=== PATIENT | male | born 1960 | race Caucasian/White ===

== ENCOUNTER → 2019-11-25 08:31 | Outpatient (CLI) | payer OTHER, SELFPAY ==
--- NOTE | ~2019-11-25 | CT_ITS ---
EXAMINATION: CT chest wo con EXAM DATE: 11/25/2019 08:58 INDICATION: Cough and tobacco use. TECHNIQUE: Spiral CT of the chest without contrast. Axial, coronal and sagittal images were reviewe d. Coronal maximum intensity pixel images of chest reviewed. The dose-length product (DLP) for this examination was 656.93 mGy-cm. The exposure was tailored according to patient size (auto mA exposur e control), and iterative reconstruction (ASIR) was used as additional dose reduction technique. The re is no prior study for comparison. FINDINGS: The lungs are clear. There is a dual lead pacemaker/AICD seen with leads projecting over the expected locations of the right atrial appendage and right ventricle. There is mild emphysema. Th ere are no pleural or pericardial effusions. Tracheobronchial tree is patent. There is no mediast inal, hilar or axillary lymphadenopathy. There is no pneumothorax. Heart normal in size. There is mild coronary arterial calcification, arterial sclerosis. Upper abdomen is unremarkable. There is thoracic spondylosis without osteoblastic or osteolytic lesions identified. IMPRESSION: 1. Mild emphysema. Reviewed, dictated and finalized at location B. IMPRESSION: 1. Mild emphysema.
== END ==
PROVIDERS: PCP Family Medicine; Visit Provider Family Medicine
DX: R05 Cough (principal); Z72.0 Tobacco use; J43.9 Emphysema, unspecified
CPT/HCPCS: 71250

== ENCOUNTER 2020-02-22 06:51 | Outpatient (NON) | payer OTHER, SELFPAY ==
[2020-02-25 12:47] LABS: SARS-CoV-2 RNA PCR Negative
== END 2020-02-22 06:52 ==
LOC: ANHCOVIDDT 07:22
PROVIDERS: Physician Assistant; PCP Family Medicine; Visit Provider Family Medicine
DX: Z20.828 Contact with and (suspected) exposure to other viral communicable diseases (principal); R68.89 Other general symptoms and signs
CPT/HCPCS: 87635; C9803; U0003

== ENCOUNTER → 2020-05-19 09:10 | Outpatient (CLI) | payer OTHER, SELFPAY ==
--- NOTE | ~2020-05-19 | CT_ITS ---
EXAMINATION: CT diagnostic chest wo con DATE: 05/19/2020 09:28 INDICATION: Cough, COPD TECHNIQUE: Computed tomography (CT) of the chest was performed without intravenous contrast. The dose -length product (DLP) was 340.31 mGy-cm. Automated exposure control and iterative reconstruction tech SimulScribe[employer] were employed. COMPARISON: 11/25/2019 FINDINGS: There is mild emphysema. The lungs are free of focal airspace opacities. There is no pleura l effusion or pneumothorax. No pathologically enlarged thoracic lymph nodes are identified. The heart size is normal. . Calcified coronary artery atherosclerosis is noted. A dual-lead cardiac pacemaker of the left chest wall ends with leads in expected locations. There is mild thoracic spondylosis. IMPRESSION: 1. Mild emphysema Reviewed, dictated and finalized at location A. S RECEPTIONIST IMPRESSION: 1. Mild emphysema
== END ==
PROVIDERS: PCP Family Medicine; Visit Provider Family Medicine
DX: Z12.2 Encounter for screening for malignant neoplasm of respiratory organs (principal); Z87.891 Personal history of nicotine dependence
CPT/HCPCS: 71250

== ENCOUNTER → 2021-04-21 10:45 | Outpatient (CLI) | payer OTHER, SELFPAY ==
[2021-04-21 21:18] LABS: SARS-CoV-2 RNA PCR Negative
== END ==
PROVIDERS: Nurse Practitioner Gerontology; PCP Family Medicine; Visit Provider Family Medicine
DX: Z20.822 Contact with and (suspected) exposure to COVID-19 (principal)
CPT/HCPCS: C9803; U0003; U0005

== ENCOUNTER → 2021-07-06 08:49 | Outpatient (CLI) | payer OTHER, SELFPAY ==
--- NOTE | ~2021-07-06 | XR_ITS ---
EXAMINATION: XR shoulder LT min 2V DATE: 07/06/2021 09:22 INDICATION: Left shoulder pain. TECHNIQUE: 4 views of left shoulder were obtained. COMPARISON: None. FINDINGS: Bone alignment is normal. No fracture. There is mild osteoarthritis of glenohumeral joint a nd moderate osteoarthritis of acromioclavicular joint. There is calcific tendinitis of the rotator cu ff. There is a loose body in glenohumeral joint. A left chest pacer is noted. IMPRESSION: 1. Polyarticular osteoarthritis. 2. Loose body in glenohumeral joint. 3. Calcific tendinitis of left rotator cuff. Reviewed, dictated and finalized at location A.
--- NOTE | ~2021-07-06 | XR_ITS ---
EXAMINATION: XR knee RT min 4V DATE: 07/06/2021 09:22 INDICATION: Right knee pain. TECHNIQUE: 4 views of right knee including standing views were obtained. COMPARISON: None. FINDINGS: Bone alignment is normal. No fracture. There is mild tricompartmental osteoarthritis charac terized by marginal osteophytes. No joint space narrowing. No knee joint effusion. IMPRESSION: 1. Mild right knee osteoarthritis. Reviewed, dictated and finalized at location A.
== END ==
PROVIDERS: PCP Family Medicine; Visit Provider Family Medicine
DX: M17.12 Unilateral primary osteoarthritis, left knee (principal); M19.012 Primary osteoarthritis, left shoulder; M24.012 Loose body in left shoulder; M77.8 Other enthesopathies, not elsewhere classified
CPT/HCPCS: 73030; 73564

== ENCOUNTER 2021-07-29 15:01 | Outpatient (RCR) | payer OTHER, SELFPAY ==
--- NOTE | 2021-07-29 15:55 | PTOPEVAL ---
PHYSICAL THERAPY EVALUATION AND PLAN OF CARE 07-29-21 The PT evaluation was performed for the diagnosis of L frozen shoulder. Sid has improved since the injection and today has full active ROM without pain. He was issued a home exercise program for strengthening and is to call if there are any changes and he wants PT treatment. His plan of care is set for 0-2x/wk for 4 weeks. Thank you for referring Sid Iraheta to [facility] Please review, sign, date and return this plan of care ELENA. I agree with and certify that the following plan of care is medically necessary. Referring Physician Date Attending Provider: Yonatan Frazier APN Past Medical History Source of Past Medical History Recalled from Previous Visit, Confirmed with Patient/Family Neurological History Hx Neurological Disorders No Significant History Cardiovascular History Hx Hypertension Yes: meds Hx Other Cardiac Disorders Yes: implanted defrib/pacer Respiratory History Hx Chronic Obstructive Pulmonary Disease Yes (COPD) Hx Emphysema Yes Gastrointestinal History Hx Gastrointestinal Disorders No Significant History Musculoskeletal History Hx Arthritis Yes: R shoulder,both knees, wrists and hands Endocrine History Hx Diabetes Yes: meds Evaluation Information Diagnosis L frozen shoulder Onset July 05, 2021 Subjective Information onset of pain: working Query Text:As Reported By Patient/ overhead alot, standing on Family ladder at work during day; that night had increased pain and next day could not move arm; went to general dr, saw specialist--got an injection into shoulder on 07-15-21; started feeling better, started moving my arm and using it; now not hardly hurting at all and moving better; Was off work about 9 days, returned to work 07-19-21; 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
--- NOTE | 2021-08-25 08:46 | PCPTNOTE ---
PHYSICAL THERAPY DISCHARGE 08-25-21 Attending Provider: Yonatan Frazier APN Patient:Sid Iraheta Date of :1960 Sid has not returned for any further treatments since the PT evaluation on 07/29/2021, therefore he will be discharged at this time. At the evaluation, he was issued a home exercise program and his shoulder pain was less after the injection. He was to call if he needed any further treatment. Thank you for referring Mr. Iraheta to [facility]. Please review, sign, date and return this discharge summary ELENA. I have been updated about the patient's current status and I agree with discharge from the above service at this time. Referring Physician Date
== END 2021-08-25 10:39 | disposition home or self-care (01) ==
LOC: ANHPT 15:01
PROVIDERS: PCP Family Medicine; Visit Provider Nurse Practitioner
DX: M25.512 Pain in left shoulder (principal); M75.02 Adhesive capsulitis of left shoulder
CPT/HCPCS: 97161

== ENCOUNTER 2021-10-22 07:29 | Outpatient (CLI) | payer OTHER, SELFPAY ==
--- NOTE | 2021-11-16 01:16 | WPDSLEEPSTUD ---
Sleep Study Date of Study: 10/22/21 Ordering Provider: Albert Motley MD Interpreting Physician: Namita Echevarria DO Sleep Study Type: CPAP Titration Height: 1.73 m Weight: 113.398 kg Body Mass Index: 38.0 Neck Circumference (inches): 21 [place]pava: 13 Reason for Sleep Study The patient was diagnosed with PARKER over 10 years ago. He has been on APAP 5-15 cm H2O. His most recent compliance report showed 100% use but the residual AHI was 15.4. Sleep History The patient is a 61 year old male with COPD, cardiomyopathy s/p pacemaker/defibrillator, HTN, CAD, hyperlipidemia, PARKER and COPD overlap syndrome, obesity, non-sustained ventricular tachycardia and tobacco abuse that had a PAP Titration study ordered by his roving frame tender for a high residual AHI on the CPAP compliance report. He occasionally awakens from sleep short of breath. He denies awakening at night with heartburn, belching or cough. He occasionally snores loud enough that others complain. He frequently has trouble sleeping when he has a cold. He occasionally wakes up gasping for air throughout the night. He frequently sweats excessively at night. He frequently has heart palpitations or irregular heartbeats during the night. He rarely falls asleep during the day and rarely falls asleep while driving. He denies cataplexy and hypnagogic / hypnopompic hallucinations. He occasionally has trouble at school or work due to sleepiness. He frequently feels unable to move when waking up or falling asleep. He rarely feels afraid of going to sleep. He rarely has nightmares. He rarely remembers his dreams. He frequently has thoughts racing through his mind. He occasionally feels sad, depressed or anxious. He rarely has muscular tension. He occasionally notices parts of his body jerk. He denies kicking during the night. He denies having crawling and aching feelings in his legs but will rarely have leg pain during the night. He frequently grinds his teeth during sleep but will rarely awaken with morning jaw pain. He is frequently bothered by pain during the day but rarely awakened by pain during the night. He occasionally wakes up feeling stiff in the morning. He occasionally wakes up with sore achy muscles. He occasionally wakes up with pain in the neck, spine and other joints. He goes to bed at 9:30 p.m. on weekdays. He does not have a set bedtime on the weekends. the amount of time it takes him to fall asleep is variable. He typically does not wake up throughout the night. He wakes up at 5:00 a.m. on weekdays. He does not have a set wake-up time on the weekends. He typically gets 7 hours of sleep per night. He will stay in bed for 30 minutes after waking up in the morning. He currently lives alone. He will consume caffeinated beverages within 2 hours of bedtime. He does not engage in physical exercise before bedtime. He will watch television before falling asleep. He will take naps in the afternoon or the evening but they are not refreshing. He drinks caffeinated beverages throughout the day. He smokes 2 packs of cigarettes per day. He denies alcohol and recreational drug use. [facility] Past Medical History Medical History Benign essential HTN Borderline diabetes CAD (coronary artery disease) COPD (chronic obstructive pulmonary disease) Heart disease Hypertension ICD (implantable cardioverter-defibrillator) battery depletion Low HDL (under 40) Mixed hyperlipidemia Non-sustained ventricular tachycardia Obesity (BMI 35.0-39.9 without comorbidity) PARKER (obstructive sleep apnea) PARKER and COPD overlap syndrome Tobacco abuse Family History Family History Father Patient's father is Family history of renal cell carcinoma, Onset Age: 65 Sibling Malignant neoplasm of prostate, Onset Age: 50 Other Cancer Heart disease Social History Social
[2021-11-16 04:16] VITALS: BMI 38.0
== END 2021-10-23 06:42 | disposition home or self-care (01) ==
LOC: ANHCSM 07:30
PROVIDERS: PCP Family Medicine; Visit Provider Internal Medicine Pulmonary Disease
DX: G47.33 Obstructive sleep apnea (adult) (pediatric) (principal)
CPT/HCPCS: 95811

== ENCOUNTER 2021-10-27 07:57 | Outpatient (CLI) | payer OTHER, SELFPAY ==
--- NOTE | 2021-10-29 20:32 | WPDSIXMINUTE ---
Six Minute Walk Procedure Procedure Performed Pulmonary Stress Test (6 min walk) Six Minute Walk Six Minute Walk: DATE OF SERVICE: 10/27/2021 REQUESTING: Dr. Motley REASON FOR TESTING: Shortness of breath SIX MINUTE WALK This test was performed per ATS guidelines. The initial saturation was 92% and the pulse was 81. The blood pressure was 138/86. The patient walked while breathing room air. The saturation ranged from 90% to 93% during the walk. Maximum pulse was 121. At the end of recovery saturation was 98%. Pulse remained at 100. Distance walked 500 ft/ 152.9 m. IMPRESSION: The patient does not require supplemental oxygen with exertion. Distance walked is less than expected for age.
--- NOTE | 2021-10-29 21:05 | P.PCNPFT_ITS ---
PFT Procedure Performed PFT Procedure Performed Spirometry with Pre/Post Bronchodilator Plethysmography (Lung Vol) Diffusing Cap (DLCO) Flow Vol Loop PFT Interpretation DOS: 10/27/2021 REQUESTING: Dr. Motlye REASON FOR TESTING: Shortness of breath PULMONARY FUNCTION TESTS Results are reliable and reproducible. Spirometry: The pre-bronchodilator FEV1 is 58%, 1.98 L, below normal. The pre- bronchodilator FVC is 67%, 2.94 L, below normal. The FEV1/FVC ratio is 67%, normal. The slow vital capacity is higher than the FVC; when slow vital capacity is used to calculate FEV1%, the ratio is decreased 48%, consistent with airflow obstruction. The PKI66-25% is 37%, 1.07 L, below normal. After bronchodilator, the FEV1 increases 18%, 2.33 L, 350 ml, a significant increase. The FVC increases 16%, 480 mL, a significant increase. The ZOW76-53% increases 21%, 220 ml. Lung volumes: TLC is 100%, 6.63 L, normal. Slow vital capacity is 94%, 4.12 L, normal. This is much higher than the FVC obtained in spirometry, and this demonstrate dynamic airway collapse. FRC is 75%, 2.56 L, normal. ERV is 55%, 0.8 2 L, below normal. RV is 118%, 2.5 L, normal. RV/TLC is 38%, increased, represents air trapping. Airway resistance is 498%, increased. Diffusion: DLCO is 79%, mildly decreased. DLCO/VA is 94%, corrects to normal. Flow volume loop: Mild scooping of the expiratory limb. IMPRESSION: Moderate obstructive ventilatory impairment which is severe in the small airways, good response to bronchodilator, mild air trapping, mild diffusion impairment. Tracie Dinero MD
== END 2021-10-27 07:58 | disposition home or self-care (01) ==
LOC: ANHPFT 07:57
PROVIDERS: PCP Family Medicine; Visit Provider Internal Medicine Pulmonary Disease
DX: R06.02 Shortness of breath (principal); J44.9 Chronic obstructive pulmonary disease, unspecified
CPT/HCPCS: 94060; 94618; 94726; 94729

== ENCOUNTER 2022-04-13 13:17 | Outpatient (CLI) | payer OTHER, SELFPAY ==
--- NOTE | ~2022-04-13 | CT_ITS ---
EXAMINATION:CT lung screening DATE: 04/13/2022 13:46 INDICATION: Lung cancer screening. Current smoker with 80 pack year history. TECHNIQUE: Computed tomography (CT) of the chest was performed without intravenous contrast. Automate d exposure control and iterative reconstruction technique were employed. The dose-length product (DLP ) was 400.29 mGy-cm. COMPARISON: Chest CT 05/19/2020 FINDINGS: There is mild emphysema. There is mild atelectasis bilaterally. No pleural effusion. The he art size is normal. There are coronary artery calcifications. There are calcifications of the aortic valve. No pericardial effusion. There is a left chest wall pacer with leads in the right atrium and r ight ventricle. There are cysts in the kidneys measuring up to 5.2 cm on the left. There is severe sp ondylosis at T6-T7 and mild spondylosis at other levels. There is mild chronic anterior wedging of T6 vertebral body. There is a chronic 5 mm lesion lytic lesion in T2 vertebral body, likely benign. IMPRESSION: 1. Lung-RADS category 1: Negative. Continue annual screening with noncontrast low-dose chest CT in 12 months. Reviewed, dictated and finalized at location A. UNTS RECEIVABLE ACCOUNTANT IMPRESSION: 1. Lung-RADS category 1: Negative. Continue annual screening with noncontrast l ow-dose chest CT in 12 months.
== END 2022-04-13 13:18 | disposition home or self-care (01) ==
PROVIDERS: PCP Family Medicine; Visit Provider Internal Medicine Pulmonary Disease
DX: Z12.2 Encounter for screening for malignant neoplasm of respiratory organs (principal); F17.210 Nicotine dependence, cigarettes, uncomplicated
CPT/HCPCS: 71271

== ENCOUNTER 2022-04-29 01:25 | Day surgery (SDC) | payer OTHER, SELFPAY ==
[2022-04-18 15:14] VITALS: BMI 37.2
[2022-04-29 06:20] VITALS: BP 132/71; PULSE 94; RESP 20; TEMP 36.3; O2SAT 98
[2022-04-29] MEDS: LACTATED RINGERS 1,000 ML 150 ML IV CONT (06:27)
[2022-04-29 06:34] LABS: Glucose Point of Care 135 mg/dl (65-105)
--- NOTE | 2022-04-29 07:30 | WPDANESEPPF ---
Anes - Initial Pre Proc Eval Procedure: Operation Date: 04/29/22 07:30 Proposed Procedures p Screening Colonoscopy - Ananth Hong MD Date/Time: 04/29/22 07:30 Surgeon: Ananth Hong MD Pre Op Diagnosis: neoplasm screening Patient Data Age: 62 Gender: M Height: 1.73 m Weight: 111.7 kg Last Vital Signs Temp 97.4 F L 04/29/22 06:20 Pulse 94 04/29/22 06:20 Resp 20 04/29/22 06:20 BP 132/71 04/29/22 06:20 Pulse Ox 98 04/29/22 06:20 O2 Del Method Room Air 04/29/22 06:20 Allergies Allergy/AdvReac Type Severity Reaction Status Date / Time bupropion [From Wellbutrin] AdvReac Rash Verified 04/29/22 06:19 Home Medications Medication Instructions Recorded Confirmed Type albuterol sulfate 90 mcg/actuation 1 inh inhalation Q4H PRN shortness 02/06/20 04/18/22 Rx aerosol inhaler of breath or wheezing #8.5 grams aspirin 81 mg tablet,delayed 81 mg PO DAILY 02/06/20 04/18/22 History release metformin 500 mg tablet 500 mg PO BID #180 tabs 03/02/22 04/18/22 Rx metoprolol succinate 100 mg See Rx Instructions .Route 03/02/22 04/29/22 Rx tablet,extended release 24 hr .COMPLEX #180 tabs olmesartan 40 See Rx Instructions .Route 03/02/22 04/18/22 Rx mg-hydrochlorothiazide 12.5 mg .COMPLEX #90 tabs tablet rosuvastatin 10 mg tablet 10 mg PO DAILY #90 tabs 03/02/22 04/18/22 Rx Laboratory Tests 04/29/22 06:27 POC Capillary Glucose 135 mg/dl H mg/dl (65-105) Patient hx anesthesia problems: none Family hx anesthesia problems: none Results Review: All pre-operative results and documents have been reviewed as part of the pre-operative evaluation. [facility] Past Medical History Medical History Benign essential HTN Borderline diabetes CAD (coronary artery disease) COPD (chronic obstructive pulmonary disease) Heart disease Hypertension ICD (implantable cardioverter-defibrillator) battery depletion Low HDL (under 40) Mixed hyperlipidemia Non-sustained ventricular tachycardia Obesity (BMI 35.0-39.9 without comorbidity) PARKER (obstructive sleep apnea) PARKER and COPD overlap syndrome Tobacco abuse Family History Family History Father Patient's father is Family history of renal cell carcinoma, Onset Age: 65 Sibling Malignant neoplasm of prostate, Onset Age: 50 Other Cancer Heart disease Social History Social History Social History: single Smoking packs per day: 2 Smoking cigarettes per day: 40.0 Years smoked: 55 Smoking pack-years: 110.00 Smoking status: Current every day smoker Tobacco type: cigarettes Second hand tobacco smoke exposure: Yes Alcohol intake: current Alcohol use details: rarely Substance use: current Substance use type: marijuana Last use: Hasn't smoked marijuana in over a year. Living arrangements: alone Occupation/Education: occupation Gender identity (if verbalized by the patient): Male Sexual Orientation (if Verbalized by the Patient): Straight or Heterosexual Spiritual care concerns: No Anes - Eval Final PreProcedure Day of Procedure 04/29/22 07:30 Patient weight: obese Heart: regular rate and rhythm Lungs: clear to auscultation Airway: Mallampati scale class III Neurological: alert and oriented Last oral intake: >/= 8 hours ASA classification: IV Emergent: no Anesthetic plan: proceed Anesthesia type and monitoring: general GIVS and standard monitoring Results Review: All pre-operative results and documents have been reviewed as part of the pre-operative evaluation. Informed Consent: The patient's anesthetic plan and its attendant risks and benefits were discussed with the patient/family/POA. Questions were solicited and answers provided to the satisfaction of the patient/family/POA.
--- NOTE | 2022-04-29 07:58 | PM.HPGS ---
History of Present Illness History of Present Illness Consent: Risks, benefits, and alternatives have been discussed and questions answered. Patient agrees to proceed with procedure. Chief complaint: neoplasm screening Narrative: Sid Iraheta is a 62 year old male here for screening colonoscopy, last one about 10 years ago Review of Systems Constitutional: Constitutional: Denies headache(s) and Denies weakness Eyes: Eyes: Denies blurry vision ENT: Reports Normal hearing present, Denies headache(s) and Denies neck pain Cardiovascular: Cardiovascular: Denies chest pain and Denies dyspnea Respiratory: Respiratory: Denies dyspnea Gastrointestinal: Gastrointestinal: Reports no additional gastrointestinal complaints Genitourinary: Genitourinary: Denies dysuria Musculoskeletal: Musculoskeletal: Denies neck pain Integumentary/Breasts: Skin/Breast: Denies dry skin Neurologic: Reports Normal hearing present, Denies headache(s) and Denies weakness Psychiatric: Psychiatric: Denies anxiety Endocrine: Endocrine: Denies change in body appearance Hematologic/Lymphatic: Hematologic/Lymphatic: Denies easy bleeding Allergic/Immunologic: Allergic/Immunologic: Denies urticaria PMFSH Past Medical History Medical History (Updated 04/29/22 @ 07:59 by Ananth Hong MD) Benign essential HTN Borderline diabetes CAD (coronary artery disease) Colon cancer screening COPD (chronic obstructive pulmonary disease) Heart disease Hypertension ICD (implantable cardioverter-defibrillator) battery depletion Low HDL (under 40) Mixed hyperlipidemia Non-sustained ventricular tachycardia Obesity (BMI 35.0-39.9 without comorbidity) PARKER (obstructive sleep apnea) PARKER and COPD overlap syndrome Tobacco abuse Family History Family History Father Patient's father is Family history of renal cell carcinoma, Onset Age: 65 Sibling Malignant neoplasm of prostate, Onset Age: 50 Other Cancer Heart disease Social History Social History Social History: single Smoking packs per day: 2 Smoking cigarettes per day: 40.0 Years smoked: 55 Smoking pack-years: 110.00 Smoking status: Current every day smoker Tobacco type: cigarettes Second hand tobacco smoke exposure: Yes Alcohol intake: current Alcohol use details: rarely Substance use: current Substance use type: marijuana Last use: Hasn't smoked marijuana in over a year. Living arrangements: alone Occupation/Education: occupation Gender identity (if verbalized by the patient): Male Sexual Orientation (if Verbalized by the Patient): Straight or Heterosexual Spiritual care concerns: No Meds Home Medications and Allergies Home Medications Medication Instructions Recorded Confirmed Type albuterol sulfate 90 mcg/actuation 1 inh inhalation Q4H PRN shortness 02/06/20 04/18/22 Rx aerosol inhaler of breath or wheezing #8.5 grams aspirin 81 mg tablet,delayed 81 mg PO DAILY 02/06/20 04/18/22 History release metformin 500 mg tablet 500 mg PO BID #180 tabs 03/02/22 04/18/22 Rx metoprolol succinate 100 mg See Rx Instructions .Route 03/02/22 04/29/22 Rx tablet,extended release 24 hr .COMPLEX #180 tabs olmesartan 40 See Rx Instructions .Route 03/02/22 04/18/22 Rx mg-hydrochlorothiazide 12.5 mg .COMPLEX #90 tabs tablet rosuvastatin 10 mg tablet 10 mg PO DAILY #90 tabs 03/02/22 04/18/22 Rx Allergies Allergy/AdvReac Type Severity Reaction Status Date / Time bupropion [From Wellbutrin] AdvReac Rash Verified 04/29/22 06:19 Vital Signs Vital Signs - 24 hr 04/29/22 06:20 Temperature 97.4 F L Pulse Rate 94 Respiratory Rate 20 Blood Pressure 132/71 Pulse Oximetry 98 Oxygen Delivery Room Air Exam Const: General: comfortable and no acute distress HENMT: Face/Nose/Sinus: Normal nares present E
[2022-04-29 08:19] VITALS: BP 112/65; PULSE 74; RESP 24; O2SAT 96
[2022-04-29 08:29] VITALS: BP 99/63; PULSE 72; RESP 23; O2SAT 98
[2022-04-29 08:39] VITALS: BP 117/72; PULSE 73; RESP 23; O2SAT 97
== END 2022-04-29 08:44 | disposition home or self-care (01) ==
PROVIDERS: PCP Family Medicine; Visit Provider Internal Medicine Gastroenterology
PROC: 0DJD8ZZ Inspection of Lower Intestinal Tract, Via Natural or Artificial Opening Endoscopic (ICD-10-PCS; CPT 45378; principal; 2022-04-29 07:30)
DX: Z12.11 Encounter for screening for malignant neoplasm of colon (principal); K63.5 Polyp of colon; D12.3 Benign neoplasm of transverse colon; I25.10 Atherosclerotic heart disease of native coronary artery without angina pectoris; J44.9 Chronic obstructive pulmonary disease, unspecified; I11.9 Hypertensive heart disease without heart failure; E78.2 Mixed hyperlipidemia; G47.33 Obstructive sleep apnea (adult) (pediatric); E66.9 Obesity, unspecified; Z68.37 Body mass index [BMI] 37.0-37.9, adult; F17.210 Nicotine dependence, cigarettes, uncomplicated; Z79.51 Long term (current) use of inhaled steroids; Z79.82 Long term (current) use of aspirin; Z79.84 Long term (current) use of oral hypoglycemic drugs
CPT/HCPCS: 45385; 82948; 88305; J2704; J7120

== ENCOUNTER 2023-04-24 13:55 | Outpatient (CLI) | payer OTHER, SELFPAY ==
--- NOTE | ~2023-04-24 | CT_ITS ---
CT Scan of the Chest without Contrast: Clinical Indication: Lung cancer screening, personal history of nicotine dependence Technique: Contiguous sections were acquired throughout the chest without intravenous contrast. Dose reduction technique was used on this scan by utilizing automated exposure control and iterative recon struction technique. The dose-length product (DLP) was 438.18 mGy-cm. COMPARISON: 04/13/2022 Findings: There is no evidence of any significant mediastinal, hilar or axillary lymphadenopathy. The mediastin al soft tissues appear normal. There is no evidence of pleural or pericardial effusion. The lungs are clear. No pulmonary nodules or infiltrates are noted. Images through the upper abdomen reveal no abnormalities. Impression: Lung RADS 1: Negative. 12 month follow-up screening CT advised. Reviewed, dictated and finalized at location . FITTER Impression: Lung RADS 1: Negative. 12 month follow-up screening CT advised.
== END 2023-04-24 13:56 | disposition home or self-care (01) ==
PROVIDERS: PCP Family Medicine; Visit Provider Nurse Practitioner Family
DX: Z12.2 Encounter for screening for malignant neoplasm of respiratory organs (principal); Z87.891 Personal history of nicotine dependence
CPT/HCPCS: 71271

== ENCOUNTER 2023-05-16 01:06 | Day surgery (SDC) | payer OTHER, SELFPAY ==
[2023-05-15 11:36] VITALS: BMI 38.5
[2023-05-16 07:20] VITALS: BP 124/76; PULSE 67; RESP 11; TEMP 36.9; O2SAT 96
[2023-05-16 07:33] LABS: Basophils Absolute Auto 0.1 K/mm3 (0.0-0.1); Basophils Percent Auto 1.6 % (0.2-1.2); Eosinophils Absolute Auto 0.4 K/mm3 (0-0.3); Eosinophils Percent Auto 4.2 % (0-4.4); Hematocrit 48.6 % (42.0-52.0); Hemoglobin 15.4 g/dL (14.0-18.0); Immature Granulocyte Absolute 0.28 K/mm3 (0.00-0.031); Immature Granulocyte Percent A 3.4 % (0-0.5); Lymphocytes Absolute Auto 1.49 K/mm3 (0.9-3.2); Lymphocytes Percent Auto 17.9 % (18.3-44.2); Mean Corpuscular HGB Conc 31.7 g/dl (32-36); Mean Corpuscular Hemoglobin 29.6 pg (26-34); Mean Corpuscular Volume 93.5 fl (80-100); Mean Platelet Volume 11.2 fl (7.4-10.4); Monocytes Absolute Auto 0.7 K/mm3 (0.1-0.6); Monocytes Percent Auto 8.5 % (2.6-8.5); Neutrophils Absolute Auto 5.4 K/mm3 (1.3-6.7); Neutrophils Percent Auto 64.4 % (45.5-73.1); Platelet Count Result 158 k/mm3 (150-375); Red Cell Distribution Width 14.3 % (11.5-14.5); White Blood Count 8.3 K/mm3 (4.5-10.0)
[2023-05-16 07:43] LABS: Prothrombin Time 13.3 Seconds (11.1-14.7)
[2023-05-16 07:48] LABS: Anion Gap 5 mmol/L (8-16); Blood Urea Nitrogen 16 mg/dL (9-20); Calcium 9.2 mg/dL (8.4-10.2); Carbon Dioxide 28 mmol/L (22-30); Chloride 104 mmol/L (98-107); Estimated CRCL calculation 104 ml/min; Estimated Glomerular Filt Rate > 60; Glucose 117 mg/dL (65-110); Potassium 4.2 mmol/L (3.4-5.0); Sodium 137 mmol/L (137-145)
[2023-05-16 07:51] VITALS: BMI 38.9
--- NOTE | 2023-05-16 08:44 | PM.IMHP ---
H&P: HPI History of Present Illness Date/Time: 05/16/23 08:44 Chief Complaint: ICD pulse generator is at [place], here for generator change Narrative: Sid Iraheta is 63-year-old male with history of nonischemic cardiomyopathy, CAD, nonsustained V-tach, and ICD implant. He also has hypertension, hyperlipidemia, diabetes, sleep apnea on CPAP and uses tobacco. In 2005 Dr. Nguyen found that he had easily inducible V-tach and dual-chamber Medtronic defibrillator was implanted. He was shocked once by his 1st defibrillator, per history. He had a generator replacement in June 2013 but the RV lead, which was a Fitzhugh lead, malfunctioned and he had a RV replacement in July 2013. The device has reached elective replacement interval. He is not pacemaker dependent and the leads appear to be functioning normally. He has been doing well with normalization of left ventricular function, EF up to 67% when we last checked in 2019. He has had no defibrillations and minimal nonsustained V-tach. He has been NPO. No signs or symptoms of infection. Some ROCK which is chronic but no edema. Review of Systems Constitutional: Constitutional: Denies fever(s) Eyes: Eyes: Reports no additional eye complaints ENT: Denies Normal hearing present ([place]) Cardiovascular: Cardiovascular: Denies chest pain, Denies pedal edema, Denies lightheadedness and Reports dyspnea Respiratory: Respiratory: Denies chest congestion, Reports dyspnea and Reports dyspnea on exertion Gastrointestinal: Gastrointestinal: Denies abdominal pain and Denies hematochezia Genitourinary: Genitourinary: Reports no additional male genitourinary complaints Musculoskeletal: Musculoskeletal: Reports no additional musculoskeletal complaints Integumentary/Breasts: Skin/Breast: Reports system reviewed and no additional complaints, except as docu Neurologic: Reports system reviewed and no additional complaints, except as documented and Denies behavioral changes Psychiatric: Psychiatric: Denies behavioral changes PMFSH Past Medical History Medical History Benign essential HTN Borderline diabetes CAD (coronary artery disease) Colon cancer screening COPD (chronic obstructive pulmonary disease) Heart disease Hypertension ICD (implantable cardioverter-defibrillator) battery depletion Low HDL (under 40) Mixed hyperlipidemia Non-sustained ventricular tachycardia Obesity (BMI 35.0-39.9 without comorbidity) PARKER (obstructive sleep apnea) PARKER and COPD overlap syndrome Tobacco abuse Family History Family History Father Patient's father is Family history of renal cell carcinoma, Onset Age: 65 Sibling Malignant neoplasm of prostate, Onset Age: 50 Other Cancer Heart disease Social History Social History Social History: single Smoking packs per day: 2 Smoking cigarettes per day: 40.0 Years smoked: 56 Smoking pack-years: 112.00 Smoking status: Current every day smoker Tobacco type: cigarettes Second hand tobacco smoke exposure: Yes Alcohol intake: never Alcohol use details: rarely Substance use: current Substance use type: marijuana Last use: 05/13/23 Living arrangements: alone Occupation/Education: occupation Gender identity (if verbalized by the patient): Male Sexual Orientation (if Verbalized by the Patient): Straight or Heterosexual Spiritual care concerns: No Meds Home Medications and Allergies Home Medications Medication Instructions Recorded Confirmed Type aspirin 81 mg tablet,delayed 81 mg PO DAILY 02/06/20 05/15/23 History release albuterol sulfate 90 mcg/actuation 1 inh inhalation Q4H PRN shortness 08/01/22 05/15/23 Rx aerosol inhaler of breath or wheezing #8.5 grams metformin 500 mg tablet 500 mg PO BID #180 tabs 01/06/23 05/15/23
--- NOTE | 2023-05-16 08:52 | WPDMODSED ---
Moderate Sedation Note-Pt Data Patient Data Diagnosis: ICD at elective replacement interval, here for generator change. Present Complaint: Sid Iraheta is 63-year-old male with history of nonischemic cardiomyopathy, CAD, nonsustained V-tach, and ICD implant. He also has hypertension, hyperlipidemia, diabetes, sleep apnea on CPAP and uses tobacco. In 2005 Dr. Nguyen found that he had easily inducible V-tach and dual-chamber Medtronic defibrillator was implanted. He was shocked once by his 1st defibrillator. He had a generator replacement and an RV lead replacement apparently in June 2013 but the RV lead, which was a Vishal lead, malfunctioned and he had a RV replacement in July 2013. The device has reached elective replacement interval. He is not pacemaker dependent and the leads appear to be functioning normally. He has been doing well with normalization of left ventricular function, EF up to 67% when we last checked in 2019. He has had no defibrillations and minimal nonsustained V-tach. He has been NPO. No signs or symptoms of infection. Some ROCK which is chronic but no edema. Procedure to be performed/Plan: Conscious sedation Generator change Allergies Allergy/AdvReac Type Severity Reaction Status Date / Time bupropion [From Wellbutrin] AdvReac Rash Verified 05/15/23 11:24 Home Medications Medication Instructions Recorded Confirmed Type aspirin 81 mg tablet,delayed 81 mg PO DAILY 02/06/20 05/15/23 History release albuterol sulfate 90 mcg/actuation 1 inh inhalation Q4H PRN shortness 08/01/22 05/15/23 Rx aerosol inhaler of breath or wheezing #8.5 grams metformin 500 mg tablet 500 mg PO BID #180 tabs 01/06/23 05/15/23 Rx rosuvastatin 10 mg tablet 10 mg PO DAILY #90 tabs 04/27/23 05/15/23 Rx metoprolol succinate 100 mg 100 mg PO BID 05/15/23 05/15/23 History tablet,extended release 24 hr olmesartan 40 1 tablet PO DAILY 05/15/23 05/15/23 History mg-hydrochlorothiazide 12.5 mg tablet tiotropium bromide 1.25 2 puff inhalation DAILY 05/15/23 05/15/23 History mcg/actuation mist for inhalation (Spiriva Respimat) Sedation/Anesthesia: No previous sedation/anesthesia problems (including family history). PMFSH Past Medical History Medical History Benign essential HTN Borderline diabetes CAD (coronary artery disease) Colon cancer screening COPD (chronic obstructive pulmonary disease) Heart disease Hypertension ICD (implantable cardioverter-defibrillator) battery depletion Low HDL (under 40) Mixed hyperlipidemia Non-sustained ventricular tachycardia Obesity (BMI 35.0-39.9 without comorbidity) PARKER (obstructive sleep apnea) PARKER and COPD overlap syndrome Tobacco abuse Family History Family History Father Patient's father is Family history of renal cell carcinoma, Onset Age: 65 Sibling Malignant neoplasm of prostate, Onset Age: 50 Other Cancer Heart disease Social History Social History Social History: single Smoking packs per day: 2 Smoking cigarettes per day: 40.0 Years smoked: 56 Smoking pack-years: 112.00 Smoking status: Current every day smoker Tobacco type: cigarettes Second hand tobacco smoke exposure: Yes Alcohol intake: never Alcohol use details: rarely Substance use: current Substance use type: marijuana Last use: 05/13/23 Living arrangements: alone Occupation/Education: occupation Gender identity (if verbalized by the patient): Male Sexual Orientation (if Verbalized by the Patient): Straight or Heterosexual Spiritual care concerns: No Mod Sed Physical Exam Physical Exam Pre Procedural Exam: Normal: Appearance ( obese), Eyes, Ears, Nose, Neck, Throat, Lungs, Heart Size, Heart Rate, Heart Rhythm, Neuro Exam, Abdomen, Extremities and Skin ( sma
--- NOTE | 2023-05-16 10:26 | P.OPB_ITS ---
Procedure Note - Brief Procedure Note - Brief Date of procedure: 05/16/23 CERTIFIED MEDICAL TRANSCRIPTIONIST Post-op diagnosis: Other (Status post Medtronic ICD generator change) Surgeon: Esthela Moe MD Findings: normal sinus rhythm /sinus bradycardia Description of procedure: uneventful generator change, leads intact title specialist chest x-ray showed only 2 leads present. Complications: No immediate complications Condition: Stable Disposition: Observation
--- NOTE | 2023-05-16 10:26 | PM.OP ---
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 Complications: No immediate complications Condition: Stable Disposition: Observation
--- NOTE | 2023-05-16 10:27 | W.PM.PROC2 ---
Procedure Note - Detailed Date of Procedure 05/16/23 Pre-op Diagnosis Medtronic ICD at recommended replacement time Post-op Diagnosis Other ( status post generator change) Procedure Performed PROCEDURE: Conscious sedation Generator change Surgeon Esthela Moe MD Anesthesia Local ( with conscious sedation) Indications Sid Iraheta is 63-year-old male with history of nonischemic cardiomyopathy, CAD, nonsustained V-tach, and ICD implant.? He also has hypertension, hyperlipidemia, diabetes, sleep apnea on CPAP and uses tobacco.? In 2005 Dr. Nguyen found that he had easily inducible V-tach and dual-chamber Medtronic defibrillator was implanted.? He was shocked once by his 1st defibrillator, per history.? He had a generator replacement in June 2013 but the RV lead, which was a Ali Molina lead, malfunctioned and he had a RV replacement in July 2013.? ? The device has reached elective replacement interval.? He is not pacemaker dependent and the leads appear to be functioning normally.? He has been doing well with normalization of left ventricular function, EF up to 67% when we last checked in 2019.? He has had no defibrillations and minimal nonsustained V-tach.? He has been NPO.? No signs or symptoms of infection.? Some ROCK which is chronic but no edema. Findings Hardware Sales Assistant film showed 1 atrial lead present and 1 ventricular lead present which was placed on septum Underlying sinus bradycardia Description of Procedure UNDERLYING RHYTHM: Sinus bradycardia NUMERICAL CONTROL TOOL PROGRAMMER FILM: 1 atrial lead present, 1 ventricular lead present, placed on the septum. CONSCIOUS SEDATION: Assessment: The patient has no history of anesthesia problems. The oropharynx is clear. The patient was deemed to be a good candidate for conscious sedation. The patient had continuous hemodynamic and oximetric monitoring during the procedure. Start time: 9:21 a.m. Completion time: 10:14 a.m. Total conscious sedation time: 53 minutes Medications: Versed 4 mg, fentanyl 100 mcg IV push Trained observer: Trudy Sadler RN Outcome: The patient tolerated the procedure well with no complications. PROCEDURE: After informed consent, the patient is brought to the supervisor laboratory animal facility and the left prepectoral area was prepped and draped in usual fashion. The patient was given a prophylactic antibiotic intravenously with Ancef. After conscious sedation as described above, the area was anesthetized with 1% lidocaine. A skin incision is made with the Plasma Blade and carried down to the pacing capsule which was also incised. Hemostasis is obtained using the Plasma Blade. The lead/s was/were freed from the underlying capsule and inspected and were found to be intact. The pulse generator was delivered from the pocket. The lead/s was/were disconnected from the existing device and reconnected to the new device. A gentle tug could not remove it/them. The device and lead/s was/were interrogated and found to be functioning appropriately. The area was copiously irrigated with antibiotic-containing solution. The device was placed in a TyRx pouch and replaced in the pocket. The subcutaneous tissues were closed in a two-layer fashion with interrupted 2 0 Vicryl sutures and the skin was closed in a continuous fashion using 4 0 Vicryl. The area was cleansed, an Aquacel dressing applied. The patient tolerated the procedure well with no complications. Estimated blood loss was negligible. THRESHOLD INFORMATION: Right atrial lead: P-wave sensing 2.1 mV, impedance 475 Ohms, threshold 0.75 volts at 0.4 milliseconds Right ventricular lead: R-wave sensing 7.5 mV, impedance 494 Ohms, threshold 0.75 volts at 0.4 milliseconds RV high-voltage lead: Impedance 86 Ohms Implants Medtronic MRI dual-chamber ICD: New pulse generator: Medtronic CMRM [id number], serial # [id number] EXISTING RIGHT ATRIAL LEAD: Medtronic 5076-5 2, serial # [id number], implanted 02/10/2016 EXISTING RIGHT VENTRICULAR LEAD: Medtronic
--- NOTE | 2023-05-16 10:29 | ECG_ITS ---
Measurements Intervals [place] Rate: 60 P: 258 TN: 210 QRS: -62 QRSD: 112 T: -26 QT: 387 QTc: 387 Interpretive Statements ELECTRONIC ATRIAL PACEMAKER MARKED LEFT AXIS DEVIATION [QRS AXIS < -30] INCOMPLETE RIGHT BUNDLE BRANCH BLOCK [90+ ms QRS DURATION, TERMINAL R IN V1/V2, 40+ ms S IN I/aVL/V4/V5/V6] NONSPECIFIC ST & T-WAVE ABNORMALITY NO PREVIOUS ECG AVAILABLE FOR COMPARISON Electronically Signed On 05-16-2023 13:51:56 FAST BRIM POUNCER by Devon Barker M.D.
[2023-05-16 10:30] VITALS: BP 116/63; PULSE 61; RESP 14; O2SAT 94
[2023-05-16 10:45] VITALS: BP 109/76; PULSE 60; RESP 15; O2SAT 94
[2023-05-16 11:00] VITALS: BP 118/66; PULSE 60; RESP 16; O2SAT 95
[2023-05-16 11:15] VITALS: BP 112/74; PULSE 60; RESP 16; O2SAT 94
[2023-05-16 11:30] VITALS: BP 107/61; PULSE 60; RESP 16; O2SAT 96
== END 2023-05-16 11:45 | disposition home or self-care (01) ==
PROVIDERS: PCP Family Medicine; Visit Provider Internal Medicine Cardiovascular Disease
PROC: 0JPT0PZ Removal of Cardiac Rhythm Related Device from Trunk Subcutaneous Tissue and Fascia, Open Approach (ICD-10-PCS; CPT 33249; principal; 2023-05-16 08:30)
DX: Z45.02 Encounter for adjustment and management of automatic implantable cardiac defibrillator (principal); I42.8 Other cardiomyopathies; I25.10 Atherosclerotic heart disease of native coronary artery without angina pectoris; I47.20 Ventricular tachycardia, unspecified; E11.9 Type 2 diabetes mellitus without complications; E78.5 Hyperlipidemia, unspecified; G47.33 Obstructive sleep apnea (adult) (pediatric); J44.9 Chronic obstructive pulmonary disease, unspecified; I11.9 Hypertensive heart disease without heart failure; E66.9 Obesity, unspecified; Z68.38 Body mass index [BMI] 38.0-38.9, adult; F17.210 Nicotine dependence, cigarettes, uncomplicated; Z79.82 Long term (current) use of aspirin; Z79.51 Long term (current) use of inhaled steroids
CPT/HCPCS: 33263; 36415; 80048; 85025; 85610; C1721; J0690; J2250; J3010; J7040

== ENCOUNTER 2024-01-12 08:17 | Outpatient (CLI) | payer OTHER, SELFPAY ==
[2024-01-12 09:41] LABS: Influenza A QL RT-PCR Negative (Negative); Influenza B QL RT-PCR Negative (Negative); RSV RNA, RT-PCR Negative (Negative); SARS-CoV-2 RNA PCR Negative (Negative)
== END 2024-01-12 08:18 | disposition home or self-care (01) ==
LOC: ANHLAB 08:19
PROVIDERS: PCP Family Medicine; Visit Provider Student in an Organized Health Care Education/Training Program
DX: R05.9 Cough, unspecified (principal)
CPT/HCPCS: 87637

== ENCOUNTER 2024-04-25 09:00 | Outpatient (CLI) | payer OTHER, SELFPAY ==
--- NOTE | ~2024-04-25 | CT_ITS ---
EXAMINATION: CT lung screening DATE: 04/25/2024 09:40 INDICATION: Z87.891 - Personal history of nicotine dependence TECHNIQUE: Computed tomography (CT) of the chest was performed without intravenous contrast. Addition al 3D reconstructions utilizing coronal maximum intensity projection (MIP) were performed. Automated exposure control and iterative reconstruction technique were employed. The dose-length product was 35 3.91 mGy-cm. COMPARISON: 04/24/2023 FINDINGS: Mild emphysema. Chronic mild elevation the left hemidiaphragm. A couple unchanged 2 mm partially post erior segment of the left upper lobe. No other new or enlarging pulmonary nodules, pneumonia, pulmona ry edema or pleural effusion. Heart size is normal. Atherosclerotic coronary artery calcification. Ao rtic valve calcification. Dual-lead cardiac pacemaker with lead tips at the right atrial appendage an d apex of the right ventricle. No pericardial effusion. Thoracic aorta is normal caliber. No patholog ically enlarged thoracic lymphadenopathy. Bilateral low-attenuation renal cysts the largest on the le ft measuring 5.2 cm. Mild diffuse hepatic steatosis. Mild to moderate thoracic spondylosis. IMPRESSION: 1. Lung-RADS category 2: Benign appearance or behavior. Continue annual screening with noncontrast lo w-dose chest CT in 12 months. Reviewed, dictated and finalized at location B. T CAREGIVER IMPRESSION: 1. Lung-RADS category 2: Benign appearance or behavior. Continue annual screeni ng with noncontrast low-dose chest CT in 12 months.
--- OUTSIDE RECORDS SUMMARY | 2024-05-02 01:56 | XMS_ITS | Encounter Summary ---
Author Organization [facility] Address [address] [place] [address] Care Team Providers Care Life Skills Trainer Name Role Phone Cristina Servin MD Primary Care Provider Encounter Details Date Type Department Care Team (Late st Contact Info) Description 07/13/2016 Orders Only [facility] ProviderGayle MD [address] [place] [id number] Social History Tobacco Use Types Packs/Day Years Used Date Smoking Tobacco: Heavy Smoker Comments:Smoking History Pac ks/day: 1 Packs Alcohol Use Standard Drinks/Week Comments Yes 0 (1 standard drink = 0.6 oz pur e alcohol) Sex and Gender Information Value Date Recorded Sex Assigned at Not on file Legal Sex Male 7:32 AM BODY FORMER Gender Identity Not on file Sexual Orientation Not on file documented as of this encounter Plan of Treatment Not on file documented as of this encounter Procedures Procedure Name Priority Date/Time Associated Diagnosis Comments CARDIOLOGY REPORT 07/13/2016 documented in this encounter Results * CARDIOLOGY REPORT (07/13/2016) Anatomical Region Laterality Modality Other Narrative 07/13/2016 Ordered by an unspecified provider. Historical Provider [facility]A ZAZUETA Final Result documented in this encounter Visit Diagnoses Not on filedocumented in this encounter Care Teams Life Skills Trainer Relationship Specialty Start Date End Date Cristina Servin MD [address] [place] [address] PCP - General 07/08/16 documented as of this encounter
--- OUTSIDE RECORDS SUMMARY | 2024-05-02 01:56 | XMS_ITS | Referral Summary ---
Author Organization [facility] [place] [address] Address [address] [place] [address] Care Team Providers Care Candles Pourer Name Role Phone Cristina Servin MD Primary Care Provider Encounters Date Type Department Care Team Description 03/28/2024 Orders Only [facility] [address] [place] [phone] Devon Barker MD Dilated cardiomyopathy (CMS/HCC) (HCC) (Primary Dx); ICD (implantable cardioverter-defibrill ator) in place 03/13/2024 7:00 AM DEBURRING MACHINE OPERATOR Ancillary Procedure [facility] [address] [place] [id number] ICD (implantable cardioverter-defibrill ator) in place (Primary Dx); Ventricular tachycardia (HCC); Cardiomyopathy, unspecified type (HCC) from Last 3 Months Allergies Active Allergy Reactions Criticality Noted Date Comments Bupropion Rash Medium 06/16/2021 H/O rash when he's tried Welbutrin Medications metFORMIN XR (GLUCOPHAGE XR) 500 mg 24 hr tablet take 1 tablet by oral route 2 times every day with the evening meal 0 0 02/13/20 15 Active metoprolol XL (TOPROL-XL) 100 mg 24 hr tablet take 1 tablet by oral route 2 times every day 0 0 02/13/20 15 Active aspirin (ASPIR-LOW) 81 mg tablet take 1 tablet by oral route every day 0 0 02/13/20 15 Active olmesartan-hydrochlo rothiazide (BENICAR HCT) 40-12.5 mg per tablet Take 1 tablet by mouth daily Active albuterol HFA (PROVENTIL HFA,VENTOLIN HFA,PROAIR HFA) 90 mcg/actuation inhaler INHALE 1 PUFF EVERY 4 HOURS NEEDED FOR SHORTNESS OF BREATH OR WHEEZING 04/08/20 20 Active Spiriva Respimat 1.25 mcg/actuation inhaler Inhale 2 puffs daily 07/12/19 24 Active rosuvastatin (Crestor) 20 mg tabletIndications:Co ronary arteriosclerosis in nondalton artery Take 1 tablet (20 mg total) by mouth daily 90 tablet 3 07/17/19 24 025 Active Active Problems Problem Noted Date Diagnosed Date Abnormal number of aortic valve cusps 06/29/2022 H/O cardiomyopathy 05/08/2019 Precordial pain 05/04/2018 ROCK (dyspnea on exertion) 04/18/2018 Dilated cardiomyopathy (CMS/HCC) 06/30/2017 Tobacco use 12/22/2016 ICD (implantable cardioverter-defibrillator) in place 09/22/2016 Overview (05/18/2023): Medtronic [place] Dual ICD Dx; DCM. DOI 05/16/2023-[facility]. Chronic A-Lead from 2005, RV lead 06/12/13. Carelink remote. Assessment & Plan (12/22/2016 6:24 PM CDT): History of nonsustained V-tach, status post ICD implant. History of 1 defibrillation several years ago ICD check showed normal function, right atrially pacing a lot, 99.5 percent in June. It is set for lower rate is 70--looks like set at this on implant. . Going back to the many years of documentation I cannot see why he was set for 70 rather than 50 -60 PPM; the patient has underlying heart rhythm rate 50 to 60 beats per minute. No h/o a fib. The Perhaps to overdrive his ventricular tachycardia? Seven year longevity ICD check in September showed some nonsustained V-tach, no therapies delivered Ventricular tachycardia 07/04/2016 Overview (09/02/2016): Ventricular tachycardia Coronary arteriosclerosis in nondalton artery 07/04 Overview (09/02/2016): CAD in nondalton artery Assessment & Plan (12/22/2016 6:14 PM CDT): Had mild to moderate CAD in 2006, asymptomatic Essential (primary) hypertension 07/04/2016 Overview (09/02/2016): Essential hypertension Assessment & Plan (12/22/2016 6:15 PM CDT): Hypertension is at goal on medical therapy Obstructive sleep apnea syndrome 07/04/2016 Overview (09/02/2016): Obstructive sleep apnea Obesity with body mass index 30 or greater 07/04 Overview (09/02/2016): Obesity (BMI 30-39.9) Assessment & Plan (12/22/2016 6:16 PM CDT): Unable to lose weight Hyperlipidemia associated with type 2 diabetes annemarie [place] 07/04/2016 Overview (09/02/2016): Mixed hyperlipidemia Assessment & Plan (12/22/2016 6:15 PM CDT): 09/2016 cholesterol 122, triglycerides 156, LDL 64, at goal Resolved Problems Problem Noted Date Diagnosed Date Resolved Date Borderline diabetes mellitus 07/04/2016 06/29/2022 Overview (09/02/2016): Pre-diabetes Hypercholesterolemia 07/04/2016 017 Overview (09/02/2016): Hypercholesterolemia Social History Tobacco Use Types Packs/Day Years Used Date Smoking Tobacco: Heavy Smoker Smokeless Tobacco: Never Tobacco Cessation:Ready to Q uit: Not Asked; Counseling Given: Not Answered Comments:Smoking History Packs/day: 1 Packs Alcohol Use Standard Drinks/Week Comments Yes 0 (1 standard drink = 0.6 oz pur e alcohol) Personal Safety Answer Date Recorded Getting School Help Needed Not on file 04/02 Sex and Gender Information Value Date Recorded Sex Assigned at Not on file Legal Sex Male 7:32 AM DEBURRING MACHINE OPERATOR Gender Identity Not on file Sexual Orientation Not on file Last Filed Vital Signs Vital Sign Reading Time Taken Comments Blood Pressure 110/60 07/17/2023 3:33 PM CDT Pulse 85 07/17/2023 3:33 PM CDT Temperature - - Respiratory Rate - - Oxygen Saturation 92% 07/17/2023 3:33 PM CDT Inhaled Oxygen Concentration - - Weight 116.6 kg (257 lb) 07/17/2023 3:33 PM CDT Height 172.7 cm (5' 8 ) 07/17/2023 3:33 PM CDT Body Mass Index 39.08 07/17/2023 3:33 PM CDT Plan of Treatment Not on file Medical Devices Implanted Type Area Automotive Worker Foreman Device Identifier Shelf Expiration Date Model / Serial / Lot Icd-06/12/2013 Implanted:2013 (Quantity not on file) ICD Chest [employer] EVERA XT [id number] / [id number] / Procedures Procedure Name Priority Date/Time Associated Diagnosis Comments DEVICE CHECK - REMOTE Routine 03/28/2024 9:17 AM DEBURRING MACHINE OPERATOR Ventricular tachycardia (HCC) Cardiomyopathy, unspecified type (HCC) POCT LIPID PANEL Routine 07/17/2023 4:15 PM CDT Mixed diabetic hyperlipidemia associated with type 2 diabetes mellitus (HCC) from Last 3 Months or Most Recently Relevant to Health Maintenance Results * DEVICE CHECK - REMOTE (03/28/2024 9:17 AM DEBURRING MACHINE OPERATOR) Anatomical Region Laterality Modality Other Narrative 05/01/2024 9:25 AM DEBURRING MACHINE OPERATOR Medtronic [place] Dual ICD Dx; DCM. DOI 05/16/2023-[facility]. Chronic A-Lead from 2005, RV lead 06/12/13. Carelink remote. Routine AAIR <> DDDR ICD Remote. Transmission attached. Battery status 3.02 V, 11.4 years remaining battery life to [place]. Stable Charge time and Shock impedance. Stable lead impedances, pacing, and sensing threshold. Presenting rhythm: ??A sensed/V sensed AP-50.9 %, PROPAGATION WORKER-< 0.1 % (0) AT/AF episodes noted. (0) Ventricular tachy arrhythmias detected. Medication: ??ASA 81 mg, Toprol-XL 100 mg Follow up: office device pacemaker/ICD 3 months CareLink remote 06/19/24 sign Antwan Rapp RN us Devon Barker MD [facility] PRO CEDURES Final Result * POCT lipid panel (07/17/2023 4:15 PM CDT) Cholesterol, POC 102 mg/dL HDL, POC <15 mg/dL Triglycerides, POC 222 mg/dL LDL Cholesterol POC 44 mg/dL Chol/HDL Ratio, POC n/a Non-HDL Cholesterol, POC n/a mg/dL Cholesterol Total, POC 102 mg/dL Capillary blood 07/17/2023 4 :15 PM CDT Lana Lowry NP POINT OF CARE TEST ORDERA BLES Final Result from Last 3 Months or Most Recently Relevant to Health Maintenance Insurance [facility] [employer] H[facility]/PPO Address: [facility] [address] [place] [address] [facility] [employer]: [place] [address] Care Teams Candles Pourer Relationship Specialty Start Date End Date Cristina Servin MD [address] [facility] [address] [place] [address] PCP - General 07/08/16
--- OUTSIDE RECORDS SUMMARY | 2024-05-02 01:56 | XMS_ITS | Encounter Summary ---
Author Organization [facility] Medical [facility] Address [address] [address] Care Team Providers Care Medical Van Driver Name Role Phone Cristina Servin MD Primary Care Provider Cristina Servin MD Primary Care Provider Encounter Details Date Type Department Care Team (Late st Contact Info) Description 06/20/2016 Orders Only Cardiology Diagnostics Provider, MD Gayle [address] [place] [id number] Social History Tobacco Use Types Packs/Day Years Used Date Smoking Tobacco: Heavy Smoker Comments:Smoking History Pac ks/day: 1 Packs Alcohol Use Standard Drinks/Week Comments Yes 0 (1 standard drink = 0.6 oz pur e alcohol) Sex and Gender Information Value Date Recorded Sex Assigned at Not on file 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 Historical Provider CV CARDIAC SERVICES PROCE DURES Final Result * CARDIOLOGY REPORT (06/20/2016) Anatomical Region Laterality Modality Other Narrative 06/20/2016 Ordered by an unspecified provider. us Historical Provider CV CARDIAC SERVICES PROCE CARLITA Final Result documented in this encounter Visit Diagnoses Not on filedocumented in this encounter Care Teams Medical Van Driver Relationship Specialty Start Date End Date Cristina Servin MD [address] [place] [address] PCP - General 07/08/16 Cristina Servin MD [address] [facility] [address] [place] [address] PCP - General 05/19/15 07/07/16 documented as of this encounter
--- OUTSIDE RECORDS SUMMARY | 2024-05-02 01:56 | XMS_ITS | Clinical Summary ---
Author Organization [facility] [address] Address [address] [place] [address] Care Team Providers Care Client Success Director Name Role Phone Cristina Servin MD Primary Care Provider Allergies Active Allergy Reactions Criticality Noted Date [...] (Crestor) 20 mg tabletIndications:Co ronary arteriosclerosis in beaver artery Take 1 tablet (20 mg total) by mouth daily 90 tablet 3 07/17/19 24 025 Active Active Problems Problem Noted Date Diagnosed Date Abnormal number of aortic valve cusps 06/29/2022 H/O cardiomyopathy 05/08/2019 Precordial pain 05/04/2018 ROCK (dyspnea on exertion) 04/18/2018 Dilated cardiomyopathy (CMS/HCC) 06/30/2017 Tobacco use 12/22/2016 ICD (implantable cardioverter-defibrillator) in place 09/22/2016 Overview (05/18/2023): Medtronic [place] Dual ICD Dx; DCM. DOI 05/16/2023-[facility]. 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 07/04 Overview (09/02/2016): CAD in beaver artery Assessment & Plan (12/22/2016 6:14 PM [...] weight Hyperlipidemia associated with type 2 diabetes m miroslava 07/04/2016 Overview (09/02/2016): Mixed hyperlipidemia Assessment & Plan (12/22/2016 6:15 PM CDT): 09/2016 cholesterol 122, triglycerides 156, LDL 64, at goal Resolved Problems Problem Noted Date Diagnosed Date Resolved Date Borderline diabetes mellitus 07/04/2016 06/29/2022 Overview (09/02/2016): Pre-diabetes Hypercholesterolemia 07/04/2016 017 Overview (09/02/2016): Hypercholesterolemia Encounters Date Type Department Care Team Description 03/28/2024 Orders Only [facility] Cardiology [address] [place] [phone] Devon Barker MD Dilated cardiomyopathy (CMS/HCC) (HCC) (Primary Dx); ICD (implantable cardioverter-defibrill ator) in place 03/13/2024 7:00 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 Ancillary Procedure [facility] Cardiology [address] [place] [id number] ICD (implantable cardioverter-defibrill ator) in place (Primary Dx); Ventricular tachycardia (HCC); Cardiomyopathy, unspecified type (HCC) from Last 3 Months Surgical History Surgery Date Site/Laterality Comments CARDIAC DEFIBRILLATOR PLACEMENT ICD insertion INSERT / REPLACE / REMOVE PACEMAKER Medical History Medical History Date Comments Hx Other Medical Sleep Apnea Chronic obstructive pulmonary disease (HCC) COPD Depression Depression Coronary artery disease Cardiomyopathy (HCC) PARKER on CPAP Family History Medical History Relation Name Comments Other Brother 2 Alive and well; Cancer Father Cancer, unknown ; Cause of : Cancer, unknown Other Mother Alive and well; Relation Name Status Comments Brother 1 Alive Brother 2 Father (Age 65) Mother Alive Social History Tobacco Use Types Packs/Day Years [...] on file Legal Sex Male 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 Gender Identity Not on file Sexual Orientation Not on file Obstetrics History Last Filed Vital Signs Vital Sign Reading [...] 07/17/2023 3:33 PM CDT Plan of Treatment Health Maintenance Due Date Last Done Comments Albumin Creatinine Ratio, Urine 1962 Colon Cancer Screening-Colonoscopy 1962 Depression Screening 1962 Hemoglobin A1C 1962 Hepatitis C Screening 1962 Prostate Cancer Screening-PSA 1962 eGFR 1962 Dilated Eye Exam 1962 Foot Exam 1962 Pneumococcal vaccine <65 (1 of 2 - PCV) 02/01/1968 DTaP/Tdap/Td Vaccine (1 - Tdap) 1973 Hepatitis B Screening 02/01/1980 Regular Well Visit/Exam 18-64 02/01/1980 Zoster Vaccine (1 of 2) 02/01/2012 Influenza Vaccine (#1) 2023 , 02/04/2017, 01/17/2013 Lipid Panel 07/16/2024 07/17/2023, 06/09, 06/16/2021, Additional history exists Medical Devices Implanted Type Area Brick And Blocker Aid Labor Device Identifier Shelf Expiration Date Model / Serial / Lot Icd-06/12/2013 Implanted:2013 (Quantity not on file) ICD Chest Medtronic Inc EVERA XT [id number] / [id number] / Procedures Procedure Name Priority Date/Time Associated Diagnosis Comments DEVICE CHECK - REMOTE Routine 03/28/2024 9:17 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 Ventricular tachycardia (HCC) Cardiomyopathy, unspecified type (HCC) POCT LIPID PANEL Routine 07/17/2023 4:15 PM CDT Mixed diabetic hyperlipidemia associated with type 2 diabetes mellitus (HCC) from Last 3 Months or Most Recently Relevant to Health Maintenance Results * DEVICE CHECK - REMOTE (03/28/2024 9:17 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) Anatomical Region Laterality Modality Other Narrative 05/01/2024 9:25 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 Medtronic St[place] Dual ICD Dx; DCM. DOI 05/16/2023-[facility]. Chronic A-Lead from 2005, RV lead 06/12/13. Carelink remote. Routine AAIR <> DDDR ICD Remote. Transmission attached. Battery status 3.02 V, 11.4 years remaining battery life to [place]. Stable Charge time and Shock impedance. Stable lead impedances, pacing, and sensing threshold. Presenting rhythm: ??A sensed/V sensed AP-50.9 %, BUSINESS CHANGE MANAGER-< 0.1 % (0) AT/AF episodes noted. (0) Ventricular tachy arrhythmias detected. Medication: ??ASA 81 mg, Toprol-XL 100 mg Follow up: office device pacemaker/ICD 3 months CareLink remote 06/19/24 sign Antwan Rapp RN [facility] Alaina Barker MD CV CARDIAC SERVICES PRO CEDURES [...] Most Recently Relevant to Health Maintenance Insurance [facility] CHOICE PLUS [place] [id number] [facility] CHOICE PLUS Member Subscriber Plan / Payer (Ef fective 2016-Present) Name:SID WILLAMS Relation to Subscriber:Self Name:Sid Willams Payer ID:[id number] (NAIC) Type:[facility] HMO/PPO Address: [place] [phone] [place] [phone] Care Teams Client Success Director Relationship Specialty Start Date End Date Cristina Servin MD [address] [facility] [address] [place] [address] [facility] - General 07/08/16
--- OUTSIDE RECORDS SUMMARY | 2024-05-02 01:56 | XMS_ITS | Patient Health Summary ---
Author Organization [facility] Address [address] [facility] [place] [address] Care Team Providers Care Development Expert Name Role Phone Cristina Servin MD Primary Care Provider + Note from [facility],non-owned Affiliates and Associated Physician Practices is amultiple site organization consisting of ambulatory clinics and hospital sitesin [place], [place], [place] and [place]. This disclosure is being madepursuant to the Care Everywhere program and may not contain all information available regarding this patient. Last updated 17.[facility] Allergies No known active allergies Medications * Be aware that medications may not be up to date on this document. Alwaysverify current medications with the patient. * rosuvastatin (CRESTOR) 10 MG tablet Take 10 mg by mouth daily. * aspirin 81 MG tablet Take 81 mg by mouth daily. * metoprolol succinate XL 24hr (TOPROL XL) 50 MG tablet(Started 08/10/2009) Take 2 Tabs by mouth 2 times daily. 1 refill left * metFORMIN (GLUCOPHAGE) 500 MG tablet Take 500 mg by mouth 2 times daily with morning and evening meal. * losartan (COZAAR) 25 MG tablet Take 25 mg by mouth once daily. * budesonide-formoterol (SYMBICORT) 160-4.5 MCG/ACT inhaler Inhale 2 Puffs by mouth 2 times daily. Active Problems Problem Noted Date Diagnosed Date AICD (automatic cardioverter/defibrillator) pres ent 12/16/2008 Hypertension 12/16/2008 Migraine 12/16/2008 Automatic implantable cardioverter-defibrillator in situ Elevated cholesterol HTN (hypertension) Social History Tobacco Use Types Packs/Day Years Used Date Smoking Tobacco: Every Day Cigarettes 1.5 45 Tobacco Cessation:Ready to Q uit: No; Counseling Given: Yes Alcohol Use Standard Drinks/Week Comments Not Asked 0 (1 standard drink = 0.6 oz pur e alcohol) Sex and Gender Information Value Date Recorded Sex Assigned at Not on file Gender Identity Not on file Sexual Orientation Not on file Last Filed Vital Signs Vital Sign Reading Time Taken Comments Blood Pressure 115/69 06/12/2013 11:30 AM LUMBER STRAIGHTENED Pulse 98 06/12/2013 11:30 AM LUMBER STRAIGHTENED Temperature 36.4 ??C (97.6 ??F) 06/12/2013 10:[address] Respiratory Rate 17 06/12/2013 11:30 AM LUMBER STRAIGHTENED Oxygen Saturation 92% 06/12/2013 11:30 AM LUMBER STRAIGHTENED Inhaled Oxygen Concentration - - Weight 100.2 kg (221 lb) 06/12/2013 8:39 AM LUMBER STRAIGHTENED Height 172.7 cm (5' 8 ) 06/12/2013 8:39 AM LUMBER STRAIGHTENED Body Mass Index 33.6 06/12/2013 8:39 AM LUMBER STRAIGHTENED Procedures * CARDIAC PROCEDURE ORDER(Performed 06/14/2013) * PT-INR(Performed 06/12/2013) Performed for ICD (implantable cardiac defibrillator) in place * BASIC METABOLIC PANEL (CALCIUM TOTAL)(Performed 06/12/2013) Performed for ICD (implantable cardiac defibrillator) in place * CBC W AUTO DIFFERENTIAL(Performed 06/12/2013) Performed for ICD (implantable cardiac defibrillator) in place * ICD ANALYSIS DUAL WITH REPROGRAM(Performed 02/18/2010) * ICD ANALYSIS DUAL WITHOUT REPROGRAM(Performed 02/02/2009) Performed for AICD (Automatic Cardioverter/Defibrillator) Present Results * CARDIAC PROCEDURE ORDER (06/14/2013 8:14 PM LUMBER STRAIGHTENED) Narrative 06/14/2013 8:14 PM LUMBER STRAIGHTENED Ordered by an unspecified provider. Transcriptions Document, Scanned - 06/14/2013 8:14 PM CST Scanned Document CARDIAC SERVICES ORD ERABLES * PT-INR (06/12/2013 8:20 AM LUMBER STRAIGHTENED) PT 9.9 9.4 - 11.2 sec 06/12/2013 8:47 AM [facility] INR 0.94 0.9 - 1.1 06/12/2013 8:47 AM [facility] Blood BLOOD SPECIMEN / Unknown Lab Venipuncture / Unknown 06/12/2013 8:20 AM LUMBER STRAIGHTENED 06/12/2013 8:29 AM [facility] - 06/12/2013 8:47 AM [facility] Conventional Anticoagulant Therapy INR Reference Ranges: ??2.0-3.0 Intensive Anticoagulant Therapy INR Reference Ranges: ? 2.5-3.5 Fidelina Nguyen MD LAB - COAGULATI ON ORDERABLES Performing Organization Address City/State/[facility] Co de Phone Number [facility] [address] [place] [address] * (ABNORMAL) CBC W AUTO DIFFERENTIAL (06/12/2013 8:20 AM [facility]) WBC 7.8 4.4 - 10.7 x10^9/L 06/12/2013 8:38 AM [facility] RBC 5.53(H) 3.80 - 5.40 x10^12/L 06/12/2013 8:38 AM [facility] Hemoglobin 16.6 12.0 - 17.6 gm/dL 06/12/2013 8:38 AM [facility] Hematocrit 50.3 35.2 - 51.7 % 06/12/2013 8:38 AM [facility] MCV 91.0 80.7 - 98.3 fl 06/12/2013 8:38 AM [facility] MCH 30.0 26.7 - 34.0 pg 06/12/2013 8:38 AM [facility] MCHC 33.0 30.8 - 35.9 gm/dL 06/12/2013 8:38 AM [facility] Platelet Count 167 153 - 416 x10^9/L 06/12/2013 8:38 AM [facility] RDW-CV 14.2 12.1 - 14.9 % 06/12/2013 8:38 AM [facility] MPV 11.5 9.4 - 12.9 fl 06/12/2013 8:38 AM [facility] Neutrophils % 65.3 44.0 - 73.0 % 06/12/2013 8:38 AM [facility] Lymphocytes % 20.1 20.0 - 43.0 % 06/12/2013 8:38 AM [facility] Monocytes % 8.0 5.0 - 13.0 % 06/12/2013 8:38 AM [facility] Eosinophils % 4.1 0.0 - 6.0 % 06/12/2013 8:38 AM [facility] Basophils % 1.0 0.0 - 2.0 % 06/12/2013 8:38 AM [facility] Immature Granulocytes 1.5(H) 0 - 1 % 06/12/2013 8:38 AM [facility] Neutrophil Absolute 5.11 2.01 - 7.14 x10^9/L 06/12/2013 8:38 AM [facility] Lymphocytes Absolute 1.57 1.07 - 3.94 x10^9/L 06/12/2013 8:38 AM [facility] Monocytes Absolute 0.63 0.26 - 1.07 x10^9/L 06/12/2013 8:38 AM [facility] Eosinophils Absolute 0.32 0 - 0.47 x10^9/L 06/12/2013 8:38 AM [facility] Basophils Absolute 0.08 0 - 0.08 x10^9/L 06/12/2013 8:38 AM [facility] Immature Granulocytes Absolute 0.12(H) 0.00 - 0.06 x10^9/L 06/12/2013 8:38 AM [facility] Blood BLOOD SPECIMEN / Unknown Lab Venipuncture / Unknown 06/12/2013 8:20 AM [facility] 06/12/2013 8:29 AM [facility] Fidelina Nguyen MD LAB - HEMATOLOG Y ORDERABLES [facility] [address] [place] [address] * (ABNORMAL) BASIC METABOLIC PANEL (CALCIUM TOTAL) (06/12/2013 8:20 AM [facility]) [facility] Glucose 108(H) 74 - 106 mg/dL 06/12/2013 8:48 AM [facility] Sodium 137 136 - 145 mmol/L 06/12/2013 8:48 AM [facility] Potassium 5.1 3.5 - 5.1 mmol/L 06/12/2013 8:48 AM LUMBER STRAIGHTENED [facility] Chloride 104 98 - 107 mmol/L 06/12/2013 8:48 AM [facility] CO2 28 22 - 31 mmol/L 06/12/2013 8:48 AM [facility] Calcium 9.6 8.5 - 10.1 mg/dL 06/12/2013 8:48 AM [facility] Anion Gap 5 5 - 15 mmol/L 06/12/2013 8:48 AM [facility] BUN 15 7 - 21 mg/dL 06/12/2013 8:48 AM [facility] Creatinine 0.46(L) 0.50 - 1.30 mg/dL 06/12/2013 8:48 AM [facility] eGFR by MDRD >60 >60 mL/min/1.7 2 06/12/2013 8:48 AM [facility] eGFR by MDRD >60 >60 mL/min/1.7 2 06/12/2013 8:48 AM [facility] Blood BLOOD SPECIMEN / Unknown Lab Venipuncture / Unknown 06/12/2013 8:20 AM LUMBER STRAIGHTENED 06/12/2013 8:29 AM LUMBER STRAIGHTENED Fidelina Nguyen MD LAB - CHEMISTRY ORDERABLES [facility] [address] [place] [address] * ICD ANALYSIS DUAL WITH REPROGRAM (02/18/2010) Fidelina Nguyen MD CARDIAC SERVICE S ORDERABLES * ICD ANALYSIS DUAL WITHOUT REPROGRAM (02/02/2009) Fidelina Nguyen MD CARDIAC SERVICE S ORDERABLES NONSSM RESULT SCAN Care Teams Development Expert Relationship Specialty Start Date End Date Cristina Servin MD [address] [place] [phone] PCP - General Family Medicine 06/11/13
--- OUTSIDE RECORDS SUMMARY | 2024-05-02 01:56 | XMS_ITS | Continuity of Care Document ---
Author Organization [id number] - [facility] Address [address] [facility] [address] [place] [address] Phone Care Team Providers Care Rolls Baker Name Role Phone Sid House MD Unavailable Unavailable Allergies, Adverse Reactions, Alerts Substance Reaction Status Criticality No Known Allergies Active No Inform ation Medications Medication Instructions Dosage Effective Dates (start - stop) Status Comments losartan 25 mg tablet take 1 tablet by o ral route every day 25 MG - Active metoprolol succinate ER 100 mg tablet,extended release 24 hr take 1 tablet by oral route 2 times every day 100 MG - Active metformin 500 mg tablet take 1 tablet by oral route 2 times every day with morning and evening meals 500 MG - Active Crestor 10 mg Tab take 1 tablet (10MG) by oral route every day 10 MG - Active aspirin 81 mg Tab take 1 tablet (81MG) by oral route every day - Active Procedures Procedure Date PROGRAM EVAL IMPLANTABLE IN PRSN DUAL L CARD/DFB-Professional Component OFFICE/OUTPT EM EST EXP PROB FOCUS/LOW 1 5 MINS INTERROGATION EVAL REMOTE </90 D /2/PLANT ANATOMIST LD ICD INTERROGATION REMOTE </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 CORDOVA OFFICE/OUTPT EM EST EXP PROB FOCUS/LOW 1 5 MINS PROGRAM EVAL IMPLANTABLE IN PRSN DUAL L CARD/DFB-Professional Component PROGRAM EVAL IMPLANTABLE IN PRSN DUAL L CARD/DFB POSTOP FOLLOW UP VISIT RELATED TO ORIGIN AL PX PROGRAM EVAL IMPLANTABLE IN PRSN DUAL L CARD/DFB POSTOP FOLLOW UP VISIT RELATED TO ORIGIN AL PX INSERTION 1 TRANSVNS ELTRD PERM PACEMKR OR CVDFB POSTOP FOLLOW UP VISIT RELATED TO ORIGIN AL PX POSTOP FOLLOW UP VISIT RELATED TO ORIGIN AL PX PROGRAM EVAL IMPLANTABLE IN PRSN DUAL L CARD/DFB POSTOP FOLLOW UP VISIT RELATED TO ORIGIN AL PX PROGRAM EVAL IMPLANTABLE IN PERSN 1 LD C GAMA/DFB REMOVE PAC CVDFB PLSE GEN &REPL PLSE GEN DUAL JESSICA ELECTROPHYSIOLOGY EVAL W/TSTG OF PULSE G EN INTERROGATION EVAL REMOTE </90 D 1/2/PLANT ANATOMIST LD ICD INTERROGATION REMOTE </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 CORDOVA PROGRAM EVAL IMPLANTABLE IN PRSN DUAL L CARD/DFB OFFICE/OUTPT EM EST EXP PROB FOCUS/LOW 1 5 MINS Dual Lead Cardioverter- Defibrillator Ap OFFICE/OUTPATIENT VISIT, EST Dual Lead Cardioverter- Defibrillator Oc Pm/icd remote tech serv Icd device interrogat remote Dual Lead Cardioverter- Defibrillator Ma r OFFICE/OUTPATIENT VISIT, EST Advance Directives Directive Yes / No Effective Date File Name No Information Encounters Encounter Description Practice Location Reason(s) For Visit Diagnoses Date Provider Providers Copied on Encounter [id number] - [employer], [address] [facility] [address], [place], [address], [place] tel: [phone] [facility] No Information 5 Harsh Lau. [address] [facility], [address]th [address], [place], [address]. tel:[phone] OFFICE/OUTPT EM EST EXP PROB FOCUS/LOW 15 MINS [id number] - [employer], [address] [facility] [address], [place], [address], [place] tel: [phone] PMS Quattromani ICD Follow Up (chief complaint) general (chief complaint) Cardiomyopathy, Other PrimaryAutomati c implantable cardiac defibrillator in situ Chanceattromanlizzie Kitchen. [address], [place], [place], [address]. tel:[phone] Referring Provider: Cristina owod, [address], [place], [address] . tel:[phone] [id number] - [employer], [address] [facility] [address], [place], [address], [place] tel: [phone] PMS Quattromani No Information 5 Quattromani Fidelina. [facility] [address], [place], [place], [id number]. tel:[phone] Referring Provider: Fidelina Almonte i, [facility] [address], [place], [address] . tel:[phone] OFFICE/OUTPT EM EST EXP PROB FOCUS/LOW 15 MINS [id number] - [employer], [address] [facility] [address], [place], [address], [place] tel: [phone] PMS Quattromani ICD Follow Up (chief complaint) Cardiomyop athy (chief complaint) general (chief complaint) Other primary cardiomyopathie sAutomatic implantable cardiac defibrillator in situ Quattromani Fidelina. [facility] [address], [place], [place], [address]. tel:[phone] Referring Provider: Cristina wood, [address], [place], [address] . tel:[phone] [id number] - [employer], [address] [facility] [address], [place], [address], [place] tel:[phone] PMS Quattromani S/P ICDCardiomyopat hy, Other Primary 4 Quattromani Fidelina. [facility] [address], [place], [place], [address]. [phone] Referring Provider: Cristina wood, [address], [place], [address] . tel:[phone] [id number] - [facility] [facility], [address] [address], [place], [address], tel: [phone] PMS Quattromani S/P ICDCardiomyopat hy, Other Primary Apr-1 0-201 4 Quattromani Fidelina. [address], [place], [place], [address]. tel:[phone] Referring Provider: Cristina wood, [address], [place], [address] . tel:[phone] [id number] - [employer], [address] [address], [place], [address], tel: [phone] [facility] No Information Apr-0 2-201 4 Quattromani Fidelina. [address], [place], [place], [address]. tel:[phone] Referring Provider: Fidelina Almonte i, [address], [place], [address] . tel:[phone] [id number] - [facility] [employer],[facility], [address] [facility] [address], [place], [address], tel: [phone] PMS Quattromani S/P ICD Mar-1 8-201 4 Quattromani Fidelina. [address], [place], [place], [address]. tel:[phone] Referring Provider: Cristina wood, [address], [place], [address] . tel:[phone] [id number] - [employer], [address] [facility] [address], [place], [address], [place] tel: [phone] PMS Quattromani S/P ICD Jun- 3-201 4 Quattromani Fidelina. [address], [place], [place], [address]. tel:[phone] Referring Provider: Fidelina Almonte i, [facility] [address], [place], [address] . tel:[phone] [id number] - [facility],[employer], [address] [address], [place], [address], [place] tel: [phone] PMS Quattromani S/P ICDCardiomyopat hy, Other Primary 1 4 Quattromani Fidelina. [address], [place], [place], [address]. tel:[phone] Referring Provider: Cristina wood, [address], [place], [address] . tel:[phone] [id number] - [facility] [employer], [address] [address], [place], [address], [place] tel: [phone] [facility] No Information 5-201 4 Quattromani Fidelina. [address], [place], [place], [address]. tel:[phone] Referring Provider: Fidelina Almonte i, [facility] [address], [place], [address] . tel:[phone] [id number] - [employer] [facility] [employer], [address] [facility] [address], [place], [address], [place] tel: [phone] PMS Quattromani No Information 4-201 4 Quattromani Fidelina. [address], [place], [place], [address]. tel:[phone] Referring Provider: Cristina wood, [address], [place], [address] . tel:[phone] OFFICE/OUTPT EM EST EXP PROB FOCUS/LOW 15 MINS [id number] - [employer], [address] [facility] [address], [place], [address], [place] tel: [phone] [facility] Cardiomyopathy, Other PrimaryS/P ICD Oct-2 9-201 3 Quattromani Fidelina. [address], [place], [place], [address]. tel:[phone] Referring Provider: Cristina wood [address], [place], [address] . tel:[phone] [id number] - [employer], [address] [facility] [address], [place], [address], [place] tel: [phone] [facility] Cardiology No Information 3 Fredi Jasso. [address] , [place], [place], [address]. tel:[phone] OFFICE/OUTPA TIENT VISIT, EST [id number] - [employer], [address] [address], [place], [address], [place] tel: [phone] [facility] Cardiomyopathy, Other PrimaryS/P ICD Apr-3 0-201 3 Quattromani Fidelina. [address], [place], [place], [address]. tel:[phone] Referring Provider: Fidelina Almonte i, [facility] [address], [place], [address] . tel:[phone] [id number] - [employer], [address] [facility] [address], [place], [address], [place] tel: [phone] [facility] S/P ICD Oct-3 0-201 2 Quattromani Fidelina. [address], [place], [place], [address]. tel:[phone] Referring Provider: Fidelina Almonte i, [address], [place], [address] . tel:[phone] [id number] - [employer], [address], [place], [address], tel: [phone] [facility] No Information 2 Patrick Kitchen. [address], [place], [place], [address]. tel:[phone] Referring Provider: Fidelina Almonte i, [facility] [address], [place], [address] . tel:[phone] OFFICE/OUTPA TIENT VISIT, EST [id number] - [employer], [address] [facility] [address], [place], [address], tel: [phone] [facility] S/P ICDPalpitations Tobacco AbuseCardiomyop athy, Ischemic Jun- 2 Patrick Kitchen. [address], [place], [place], [address]. [phone] Referring Provider: Fidelina Almonte i, [facility] [address], [place], [address] . tel:[phone] [id number] - [employer], [address] [facility] [address], [place], [address], tel: [phone] [facility] Internal Med Hypertension, Unspec.Other and unspecified hyperlipidemiaS /P ICD Jun-2 8201 2 Quattromani Fidelina. [address], [place], [place], [address]. [phone] Family History Family Member Type Diagnosis Age At Onset No Information Payers Payer name Insurance type Covered republican ID Tr almeida(s) [facility] CI [id number] Social History Type Description Quantity Date Captured Comments Alcohol Use Details Unknown Caffeine Use Details Unknown Tobacco Use Status Smoking Status No Information Sex Male Chief Complaint And Reason For Visit No Information Reason For Referral Reason For Referral No Information History Of Present Illness Encounter Date Complaint History Of Prese nt Illness general He has had no ch est discomfort suggestive of ischemia.The patient denies orthopnea, PND, ROCK, or edema. Mr. Iraheta has not had palpitations, syncope or near syncope. ICD Follow Up 54 y old male wi th history of non ischemic cardiomyopathy and ICd implanted for primary preventionpatient is doing well no complaints at this time BP well controlledon metformin for diabetes . general He has had no ch est discomfort suggestive of ischemia. The patient denies orthopnea, PND, ROCK, or edema. Cardiomyopathy non ischemic car diomyopathysevere lv disfunctionopivol demonstrate fluid accumulation. ICD Follow Up Functional Status Date Functional Assessmen t No Information Instructions Date Instruction Additional Infor mation No Information Assessments Type Assessment Date No Information Patient Care Teams Name Effective Dates (start - stop) Status Members No Information
--- OUTSIDE RECORDS SUMMARY | 2024-05-02 01:56 | XMS_ITS | Referral Summary ---
Author Organization [facility] Address [address] [address] Care Team Providers Care Red Cap Name Role Phone Cristina Servin MD Primary Care Provider + Source Comments [facility],non-owned Affiliates and Associated Physician Practices is amultiple site organization consisting of ambulatory clinics and hospital sitesin [place], [place], [place]. This disclosure is being madepursuant to the Care Everywhere program and may not contain all information available regarding this patient. Last updated 17.[facility] Allergies No known active allergies Medications * Be aware that medications may not be up to date on this document. Alwaysverify current medications with the patient. Medication Sig Dispensed Refills Start Date End Date Status rosuvastatin (CRESTOR) 10 MG tabletIndications:AICD (automatic cardioverter/defibrill ator) present,Elevated cholesterol,HTN (hypertension) Take 10 mg by mouth daily. Active aspirin 81 MG tabletIndications:AICD (automatic cardioverter/defibrill ator) present,Elevated cholesterol,HTN (hypertension) Take 81 mg by mouth daily. Active metoprolol succinate XL 24hr (TOPROL XL) 50 MG tabletIndications:AICD (automatic cardioverter/defibrill ator) present,Elevated cholesterol,HTN (hypertension) Take 2 Tabs by mouth 2 times daily. 30 1 08/10/2009 Active metFORMIN (GLUCOPHAGE) 500 MG tablet Take 500 mg by mouth 2 times daily with morning and evening meal. Active losartan (COZAAR) 25 MG tablet Take 25 mg by mouth once daily. Active budesonide-formoterol (SYMBICORT) 160-4.5 MCG/ACT inhaler Inhale 2 Puffs by mouth 2 times daily. Active Active Problems Problem Noted Date Diagnosed Date AICD (automatic cardioverter/defibrillator) pres ent 12/16/2008 Overview (12/16/2008): Med[employer]onic Martha STYLES [id number] # [id number] Hypertension 12/16/2008 Migraine 12/16/2008 Automatic implantable cardioverter-defibrillator in situ Overview (09/01/2014): Elevated cholesterol HTN (hypertension) Social History Tobacco [...] Comments Blood Pressure 115/69 06/12/2013 11:30 AM FEATHERER Pulse 98 06/12/2013 11:30 AM FEATHERER Temperature 36.4 ??C (97.6 ??F) 06/12/2013 10:[address] Respiratory Rate 17 06/12/2013 11:30 AM FEATHERER Oxygen Saturation 92% 06/12/2013 11:30 AM FEATHERER Inhaled Oxygen Concentration - - Weight 100.2 kg (221 lb) 06/12/2013 8:39 AM FEATHERER Height 172.7 cm (5' 8 ) 06/12/2013 8:39 AM FEATHERER Body Mass Index 33.6 06/12/2013 8:39 AM FEATHERER Plan of Treatment Not on file Advance Directives * Full Code (Latest Code Status on File) Date Activated Date Inactivated Comments 06/12/2013 10:40 AM 06/12/2013 12:58 PM Care Teams Red Cap Relationship Specialty Start Date End Date Cristina Servin MD [address] [place] [address] PCP - General Family Medicine 06/11/13
--- OUTSIDE RECORDS SUMMARY | 2024-05-02 01:56 | XMS_ITS | Clinical Summary ---
Author Organization [email or web address] Address [address] [facility] [place] [address] Care Team Providers Care Aging Room Hand Name Role Phone Cristina Servin MD Primary Care Provider + Source Comments [email or web address],non-owned Affiliates and Associated Physician Practices is amultiple site organization consisting of ambulatory clinics and hospital sitesin [place], [place], [place]. This disclosure is being madepursuant to the Care Everywhere program and may not contain all information available regarding this patient. Last updated 17.[employer] Allergies No known active allergies Medications * [...] ent 12/16/2008 Overview (12/16/2008): Medtronic Martha STYLES [id number] # [id number] Hypertension 12/16/2008 Migraine 12/16/2008 Automatic implantable cardioverter-defibrillator in situ Overview (09/01/2014): Elevated cholesterol HTN (hypertension) Family History Medical History Relation Name Comments Cancer - Other Father Hypercholesterolemia Mother Relation Name Status Comments Father Mother Alive Social History Tobacco Use Types [...] Comments Blood Pressure 115/69 06/12/2013 11:30 AM REHABILITATOR Pulse 98 06/12/2013 11:30 AM REHABILITATOR Temperature 36.4 ??C (97.6 ??F) 06/12/2013 10:[address] Respiratory Rate 17 06/12/2013 11:30 AM REHABILITATOR Oxygen Saturation 92% 06/12/2013 11:30 AM REHABILITATOR Inhaled Oxygen Concentration - - Weight 100.2 kg (221 lb) 06/12/2013 8:39 AM REHABILITATOR Height 172.7 cm (5' 8 ) 06/12/2013 8:39 AM REHABILITATOR Body Mass Index 33.6 06/12/2013 8:39 AM REHABILITATOR Plan of Treatment Health Maintenance Due Date Last Done Comments COLOGUARD (AGES 45-75) - COL ON CA SCREENING 1962 COLON MONITORING 1962 COLONOSCOPY - COLON CA SCREENING 1962 CT COLONOGRAPHY - COLON CA SCREENING 1962 Colorectal Cancer Screening 1962 FIT - COLON CA SCREENING 1962 FLEX SIG - COLON CA SCREENING 1962 HIV SCREENING 1977 HEPATITIS C SCREENING 01/27/1980 DTAP/TDAP/TD VACCINES (1 - Tdap) 1981 PNEUMOCOCCAL VACCINE 50+ (1 of 2 - PCV) 1981 PNEUMOCOCCAL VACCINE (1 of 2 - PCV) 1981 ZOSTER VACCINE (1 of 2) 02/01/2012 COVID-19 VACCINE (1 - 2023-2 5 season) 2023 INFLUENZA VACCINE (#1) 2023 DEPRESSION SCREENING 04/10/2024 Respiratory Syncytial Virus (RSV) Vaccine Pt: or over 60 yrs (1 - 1-dose 75+ series) 2037 HEPATITIS B VACCINE Aged Out No longe r eligible based on patient's age to complete this topic HIB VACCINE Aged Out No longer eligi ble based on patient's age to complete this topic HPV VACCINE Aged Out No longer eligi ble based on patient's age to complete this topic MENINGOCOCCAL (Group B) VACCINE Aged Out No longer eligible based on patient's age to complete this topic MENINGOCOCCAL VACCINE Aged Out No fer marcial eligible based on patient's age to complete this topic Advance Directives * Full Code (Latest Code Status on File) Date Activated Date Inactivated Comments 06/12/2013 10:40 AM 06/12/2013 12:58 PM Care Teams Aging Room Hand Relationship Specialty Start Date End Date Cristina Servin MD [address] [place] [address] PCP - General Family Medicine 06/11/13
--- OUTSIDE RECORDS SUMMARY | 2024-05-02 01:56 | XMS_ITS | Encounter Summary ---
Author Organization [facility] Address [address] [place] [address] Care Team Providers Care School Examiner Name Role Phone Cristina Servin MD Primary Care Provider + Encounter Details Date Type Department Care Team (Late st Contact Info) Description 08/10/2009 [facility]PT Fidelina Nguyen MD [address] [place] [address] Social History Tobacco Use Types Packs/Day Years Used Date Smoking Tobacco: Never Assessed Sex and Gender Information Value Date Recorded Sex Assigned at Not on file Gender Identity Not on file Sexual Orientation Not on file documented as of this encounter Plan of Treatment Not on file documented as of this encounter Visit Diagnoses Not on filedocumented in this encounter Care Teams School Examiner Relationship Specialty Start Date End Date Cristina Servin MD [address] [facility] [address] [place] [address] PCP - General Family Medicine 06/11/13 documented as of this encounter
--- OUTSIDE RECORDS SUMMARY | 2024-05-02 01:56 | XMS_ITS | CONTINUITY OF CARE DOCUMENT ---
Author Name karen jones Address Unknown Organization [facility] Address [address] [place] [address] Phone [phone] Care Team Providers Care Pi/Senior Research Associate Name Role Phone Shaka Subramanian MD Unavailable CURT ESTRADA MD Unavailable CURT ESTRADA MD Unavailable PROBLEMS Condition Status Date Provider Notes VENTRICULAR TACHYCARDIA active Iraida gómez TOBACCO ABUSE active Iraida Villarreal ENCOUNTERS Date Type Provider Location Encounter Diagnosis - In-person encounter Office Visit Shaka Subramanian MD [place] [facility] - In-person encounter Office Visit Shaka Subramanian MD [place] [facility] - In-person encounter Office Visit Shaka Subramanian MD [place] [facility] - In-person encounter Office Visit Shaka Subramanian MD [place] [facility] - In-person encounter Office Visit Shaka Subramanian MD [place] [facility] - In-person encounter Office Visit Shaka Subramanian MD [place] [facility] VITAL SIGNS Date Observation Value Provider Body Mass Index (Ratio) 34.59 kg/m2 Mohan Hogan blood pressure, diastolic 88 mm[Hg] Red blood pressure, systolic 122 mm[Hg] Samy Hogan pulse rate 91 /min Raciel Hogan oxygen saturation, oximetry 94 % Raciel Hogan respiratory rate E&M 16 /min Raciel Hogan weight E&M 230 [lb_av] Samyderrek Hogan height E&M 68.5 [in_i] Raciel Hogan blood pressure, diastolic 84 mm[Hg] Tomasa carrasquillo [place] blood pressure, systolic 127 mm[Hg] Grupo anderson [place] pulse rate 98 /min [facility] oxygen saturation, oximetry 92 % [facility] respiratory rate E&M 16 /min [facility] weight E&M 230 [lb_av] [facility] blood pressure, diastolic, left arm 84 mm [Hg] Raciel Hogan blood pressure, systolic, left arm 120 mm [Hg] Raciel Screven blood pressure, diastolic, right arm 92 m m[Hg] Samyderrek Screven blood pressure, systolic, right arm 125 m m[Hg] Raciel Hogan blood pressure, diastolic 92 mm[Hg] Simmons Hogan blood pressure, systolic 125 mm[Hg] Samy guillermo Hogan oxygen saturation, oximetry 96 % Raciel Hogan respiratory rate E&M 16 /min Raciel Hogan weight E&M 224 [lb_av] Raciel Hogan blood pressure, diastolic 86 mm[Hg] Keegan Herrera RN blood pressure, systolic 132 mm[Hg] Christofer Herrera RN pulse rate 114 /min Christofer Herrera RN oxygen saturation, oximetry 94 % Christofer Herrera RN respiratory rate E&M 18 /min Christofer chavez RN weight E&M 228 [lb_av] Christofer Herrera RN blood pressure, diastolic 70 mm[Hg] Keegan Herrera RN blood pressure, systolic 112 mm[Hg] Christofer Herrera RN pulse rate 108 /min Christofer Herrera RN oxygen saturation, oximetry 96 % Christofer Herrera RN respiratory rate E&M 16 /min Christofer chavez RN weight E&M 228 [lb_av] Christofer Herrera RN blood pressure, diastolic 57 mm[Hg] Te herminio Bond blood pressure, systolic 101 mm[Hg] Sosa pulse rate 54 /min Carolina Bond oxygen saturation, oximetry 94 % Carolina Bond respiratory rate E&M 20 /min Carolina jones weight E&M 225 [lb_av] Carolina Bond ALLERGIES No Known Drug Allergies HISTORY OF MEDICATION USE Medication Status Instructions Dates Provider Indications Com ments SLO-NIACIN 500 MG ORAL TABLET EXTENDED RELEASE active 1 tab daily Raciel Hogan ASPIRIN 81 MG ORAL TABLET active 1 tablet by mouth daily José Manacotameka CRESTOR 10 MG ORAL TABLET active 1 tablet by mouth daily José Marte NIASPAN 500 MG ORAL TABLET EXTENDED RELEASE active 1 tablet by mouth daily José Mcculloughacotameka ADVICOR 500-20 MG ORAL TABLET EXTENDED RELEASE 24 HOUR completed ONE TAB. AT BEDTIME - José Marte METOPROLOL SUCCINATE ER 100 MG ORAL TABLET EXTENDED RELEASE 24 HOUR active 1 tab twie daily Raciel Hogan SOCIAL HISTORY Date Observation Value Provider social history reviewed E&M reviewed Christofer Herrera RN In the past 3 months , have you felt you should cut down or stop using drugs?(CAGE substance use question #1) Yulissa Hogan In the past 3 months , has anyone annoyed you by telling you to cut down or stop using drugs? (CAGE substance use question #2) Yulissa Hogan In the past 3 months , have you felt guilty or bad about using drugs? (CAGE substance use question #3) Yulissa Hogan In the past 3 months , have you been waking up wanting to use drugs? (CAGE substance use question #4) N Raciel Hogan alcohol counseling no Raciel schaeffer alcohol use, type beer Raciel groves alcohol use, average drinks per day <1 Raciel Hogan drug use no Raciel Hogan passive cigarette sm ronald exposure no Raciel Hogan smoking history, tot al pack/day 1 Raciel Hogan cigarette use yes Raciel huerta smoking history, tot al pack/year 40 Raciel Hogan smoking, date started 1971 Camille Hogan smoking status smoker - current status unknown Shaka Subramanian MD smoking/tobacco cess ation, patient education and counseling yes Shaka Subramanian MD social history reviewed E&M reviewed Christofer Herrera RN smoking/tobacco cess ation, patient education and counseling yes Shaka Subramanian MD social history reviewed E&M reviewed Shaka Subramanian MD smoking/tobacco cess ation, patient education and counseling yes Shaka Subramanian MD social history reviewed E&M reviewed Christofer Herrera RN smoking/tobacco cess ation, patient education and counseling yes Christofer Herrera RN social history E&M Marital Statu s: Single L sonal alone E thnicity: Christofer Herrera RN social history reviewed E&M reviewed Christofer Herrera RN drug use none Shaka Subramanian MD smoking history, tot al pack/year 30 Shaka Subramanian MD cigarette use 15 Shaka Das social history reviewed E&M reviewed Shaka Subramanian MD physical exercise, f requency, days per week no [employer] caffeine use, averag e drinks per day no [employer] alcohol use, average drinks per day social basis only [employer] number of years as a smoker 10 years or m ore [facility] smoking status Smoker [facility] MENTAL STATUS Date Observation Value Provider assessment of judgme nt and insight E&M Alert and oriented to time, place and person. Mood and affect are normal. Christofer Herrera RN assessment of judgme nt and insight E&M Alert and oriented to time, place and person. Mood and affect are normal. Christofer Herrera RN assessment of judgme nt and insight E&M Alert and oriented to time, place and person. Mood and affect are normal. Shaka Subramanian MD assessment of judgme nt and insight E&M Alert and oriented to time, place and person. Mood and affect are normal. Christofer Herrera RN assessment of judgme nt and insight E&M Alert and oriented to time, place and person. Mood and affect are normal. Christofer Herrera RN assessment of judgme nt and insight E&M Alert and oriented to time, place and person. Mood and affect are normal. Shaka Subramanian MD INSURANCE PROVIDERS Payer name Policy type / Coverage type [place] [employer] [id number] TREATMENT PLAN Date Name Performer follow up:has had no further epsiodes. H is updated medication list for this problem includes: Metoprolol Succinate 100 Mg [id number] (Metoprolol succinate) ..... 1 tab twie daily Aspirin 81 Mg Tabs (Aspirin) ..... 1 tablet by mouth daily BP today: 122/88 Prior BP: 127/84 (03/10/2011) S tress Test: Good exercise tolerance. Negative stress EKG for stress induced ischemia. Increased frequency of ventricualr arrhythmias during and after stress. (12/26/2005) S tress Test Comments: Further assessment of cardiac status is strongly recommended. (12/26/2005) N uclear Stress Findings: 1. Abnormal Neo protocol exercise tolerance test. 2 . Decreased left ventricularfunction with a calculated ejection fraction of 52%. 3 . Myocardial scintigraphy demonstrates smal area of mid inferior wall and apical ischemia. GC (04/16/2010) C ardiac Cath: Normal LV function. Elevated LVEDP. No obstructive CAD. Nonsustained ventricular tachycardia. EF 60%. (12/27/2005) Shaka Subramanian MD follow up: H is updated medication list for this problem includes: Metoprolol Succinate 100 Mg [id number] (Metoprolol succinate) ..... 1 tab twie daily Niaspan 500 Mg Cr-tabs (Niacin (antihyperlipidemic)) ..... 1 tablet by mouth daily Crestor 10 Mg Tabs (Rosuvastatin calcium) ..... 1 tablet by mouth daily Aspirin 81 Mg Tabs (Aspirin) ..... 1 tablet by mouth daily BP today: 122/88 Prior BP: 127/84 (03/10/2011) S tress Test: Good exercise tolerance. Negative stress EKG for stress induced ischemia. Increased frequency of ventricualr arrhythmias during and after stress. (12/26/2005) S tress Test Comments: Further assessment of cardiac status is strongly recommended. (12/26/2005) N uclear Stress Findings: 1. Abnormal Neo protocol exercise tolerance test. 2 . Decreased left ventricularfunction with a calculated ejection fraction of 52%. 3 . Myocardial scintigraphy demonstrates smal area of mid inferior wall and apical ischemia. (04/16/2010) C ardiac Cath: Normal LV function. Elevated LVEDP. No obstructive CAD. Nonsustained ventricular tachycardia. EF 60%. (12/27/2005) Shaka Subramanian MD follow up: H is updated medication list for this problem includes: Metoprolol Succinate 100 Mg [id number] (Metoprolol succinate) ..... 1 tab twie daily Aspirin 81 Mg Tabs (Aspirin) ..... 1 tablet by mouth daily Orders: E KG ([id number]) BP today: 122/88 Prior BP: 127/84 (03/10/2011) S tress Test: Good exercise tolerance. Negative stress EKG for stress induced ischemia. Increased frequency of ventricualr arrhythmias during and after stress. (12/26/2005) S tress Test Comments: Further assessment of cardiac status is strongly recommended. (12/26/2005) N uclear Stress Findings: 1. Abnormal Neo protocol exercise tolerance test. 2 . Decreased left ventricularfunction with a calculated ejection fraction of 52%. 3 . Myocardial scintigraphy demonstrates smal area of mid inferior wall and apical ischemia. (04/16/2010) C ardiac Cath: Normal LV function. Elevated LVEDP. No obstructive CAD. Nonsustained ventricular tachycardia. EF 60%. (12/27/2005) Shaka Subramanian MD follow up Shaka Subramanian MD Yearly follow-up wit h Echo toady:no recurrence since the lopressor and the defib. H is updated medication list for this problem includes: Metoprolol Tartrate 100 Mg Tabs (Metoprolol tartrate) ..... 1 tablet by mouth twice daily Aspirin 81 Mg Tabs (Aspirin) ..... 1 tablet by mouth daily BP today: 127/84 Prior BP: 125/92 (04/23/2010) S tress Test: Good exercise tolerance. Negative stress EKG for stress induced ischemia. Increased frequency of ventricualr arrhythmias during and after stress. (12/26/2005) S tress Test Comments: Further assessment of cardiac status is strongly recommended. (12/26/2005) N uclear Stress Findings: 1. Abnormal Neo protocol exercise tolerance test. 2 . Decreased left ventricularfunction with a calculated ejection fraction of 52%. 3. Myocardial scintigraphy demonstrates smal area of mid inferior wall and apical ischemia. (04/16/2010) E chocardiogram: Normal left ventricular systolic function. Normal left ventricular size. There is borderline left ventricular hypertrophy. Mitral inflow Doppler demonstrates pseudonormal pattern consistent with diastolic dysfunction. Abnormal E/E`, suggestive of elevated LVEDP.10.0. Left ventricular ejection fraction is estimated at 60%. T here is mild enlargement of the left atrium. There is mild enlargement of right atrium. Linear artifact in right atrium suggestive of catheter, pacer lead, or ICD lead. Normal aortic root size. Normal pericardium with no pericardial or pleural effusion.No significant valvular abnormalities. (03/12/2010) C ardiac Cath: Normal LV function. Elevated LVEDP. No obstructive CAD. Nonsustained ventricular tachycardia. EF 60%. (12/27/2005) Shaka Subramanian MD Yearly follow-up wit h Echo toady: H is updated medication list for this problem includes: Metoprolol Tartrate 100 Mg Tabs (Metoprolol tartrate) ..... 1 tablet by mouth twice daily Niaspan 500 Mg Cr-tabs (Niacin (antihyperlipidemic)) ..... 1 tablet by mouth daily Crestor 10 Mg Tabs (Rosuvastatin calcium) ..... 1 tablet by mouth daily Aspirin 81 Mg Tabs (Aspirin) ..... 1 tablet by mouth daily BP today: 127/84 Prior BP: 125/92 (04/23/2010) S tress Test: Good exercise tolerance. Negative stress EKG for stress induced ischemia. Increased frequency of ventricualr arrhythmias during and after stress. (12/26/2005) S tress Test Comments: Further assessment of cardiac status is strongly recommended. (12/26/2005) N uclear Stress Findings: 1. Abnormal Neo protocol exercise tolerance test. 2 . Decreased left ventricularfunction with a calculated ejection fraction of 52%. 3 . Myocardial scintigraphy demonstrates smal area of mid inferior wall and apical ischemia. GC (04/16/2010) C ardiac Cath: Normal LV function. Elevated LVEDP. No obstructive CAD. Nonsustained ventricular tachycardia. EF 60%. (12/27/2005) Shaka Subramanian MD Yearly follow-up with Echo shawn Subramanian MD follow up:120/84 H is updated medication list for this problem includes: Metoprolol Tartrate 100 Mg Tabs (Metoprolol tartrate) ..... 1 tablet by mouth twice daily Shaka Subramanian MD follow up:The Patient was reenco uraged to stop smoking. Shaka Subramanian MD follow up: H is updated medication list for this problem includes: Metoprolol Tartrate 100 Mg Tabs (Metoprolol tartrate) ..... 1 tablet by mouth twice daily Shaka Subramanian MD follow up: H is updated medication list for this problem includes: Metoprolol Tartrate 100 Mg Tabs (Metoprolol tartrate) ..... 1 tablet by mouth twice daily h e is more active than before and he has no symptoms. 2 yrs ago he had no sig obstructive dz. i will continue to keep an eye on his symptoms and will see him in about a yr. Shaka Subramanian MD routine :132/86 H is updated medication list for this problem includes: Metoprolol Tartrate 100 Mg Tabs (Metoprolol tartrate) ..... 1 tablet by mouth twice daily Prior BP: 112/70 (03/13/2009) Shaka Subramanian MD routine : H is updated medication list for this problem includes: Metoprolol Tartrate 100 Mg Tabs (Metoprolol tartrate) ..... 1 tablet by mouth twice daily BP today: / Prior BP: 112/70 (03/13/2009) S tress Test: Good exercise tolerance. Negative stress EKG for stress induced ischemia. Increased frequency of ventricualr arrhythmias during and after stress. (12/26/2005) S tress Test Comments: Further assessment of cardiac status is strongly recommended. (12/26/2005) E chocardiogram: Normal LV systolic function. Normal LV size. Mild concentric LVH. E to A ratio is consistent with restrictive physiology. N ormal E/E` 5.0. LVEF 60%.Trace MR. Non-specific thickening of t he MVL. AV sclerosis and thickening. Trace TR. Non-specific thickening of theTV. IVC is normal in size. Unable to adequately assess the RVSP. Normal pericardium with no significant pericardial effusion. Normal aortic root. (03/13/2009) C ardiac Cath: Normal LV function. Elevated LVEDP. No obstructive CAD. Nonsustained ventricular tachycardia. EF 60%. (12/27/2005) Shaka Subramanian MD routine : H is updated medication list for this problem includes: Metoprolol Tartrate 100 Mg Tabs (Metoprolol tartrate) ..... 1 tablet by mouth twice daily Niaspan 500 Mg Cr-tabs (Niacin (antihyperlipidemic)) ..... 1 tablet by mouth daily Crestor 10 Mg Tabs (Rosuvastatin calcium) ..... 1 tablet by mouth daily BP today: / Prior BP: 112/70 (03/13/2009) S tress Test: Good exercise tolerance. Negative stress EKG for stress induced ischemia. Increased frequency of ventricualr arrhythmias during and after stress. (12/26/2005) S tress Test Comments: Further assessment of cardiac status is strongly recommended. (12/26/2005) C ardiac Cath: Normal LV function. Elevated LVEDP. No obstructive CAD. Nonsustained ventricular tachycardia. EF 60%. (12/27/2005) Shaka Subramanian MD routine :he is doing well. will rx a stress thallium and he had an echo today. H is updated medication list for this problem includes: Metoprolol Tartrate 100 Mg Tabs (Metoprolol tartrate) ..... 1 tablet by mouth twice daily BP today: / Prior BP: 112/70 (03/13/2009) S tress Test: Good exercise tolerance. Negative stress EKG for stress induced ischemia. Increased frequency of ventricualr arrhythmias during and after stress. (12/26/2005) S tress Test Comments: Further assessment of cardiac status is strongly recommended. (12/26/2005) C ardiac Cath: Normal LV function. Elevated LVEDP. No obstructive CAD. Nonsustained ventricular tachycardia. EF 60%. (12/27/2005) E chocardiogram: Normal LV systolic function. Normal LV size. Mild concentric LVH. E to A ratio is consistent with restrictive physiology. N ormal E/E` 5.0. LVEF 60%.Trace MR. Non-specific thickening of t he MVL. AV sclerosis and thickening. Trace TR. Non-specific thickening of theTV. IVC is normal in size. Unable to adequately assess the RVSP. Normal pericardium with no significant pericardial effusion. Normal aortic root. (03/13/2009) Orders: E KG ([id number]) Shaka Subramanian MD rouitne: O rders: T OBACCO USE CESSATION INTERMEDIATE 3-10 MINUTES ([id number]) Shaka Subramanian MD rouitne: H is updated medication list for this problem includes: Metoprolol Tartrate 100 Mg Tabs (Metoprolol tartrate) ..... 1 tablet by mouth twice daily BP today: 112/70 Prior BP: 101/57 (01/17/2008) S tress Test: Good exercise tolerance. Negative stress EKG for stress induced ischemia. Increased frequency of ventricualr arrhythmias during and after stress. (12/26/2005) S tress Test Comments: Further assessment of cardiac status is strongly recommended. (12/26/2005) E chocardiogram: The left ventricular chamber size is normal. Wall thickness is increased consistent with mild concentric left ventricular hypertrophy. Normal left ventricular function. LV EF is estimated at 60% The right ventricle is normal in size and function. There is a linear artifact in right ventricle suggestive of catheter, pacer lead, or ICD lead. Mild left atrial enlargement.The mitral valve leaflets appear (sclerotic) thickened. The aortic valve appears mildly thickened (sclerotic). The tricuspid valve is structurally normal. The right ventricular systolic pressure (RSVP) is estimated to be less than 30 mmHg and is within normal limits. Minimal mitral regurgitation. No evidence of aortic valve regurgitation. h e has had no further vt and he has a defib which on interrogation had multiple short episodes of vt. M inimal tricuspid regurgitation. No evidence of pulmonic valve regurgitation. (01/17/2008) C ardiac Cath: Normal LV function. Elevated LVEDP. No obstructive CAD. Nonsustained ventricular tachycardia. EF 60%. (12/27/2005) Shaka Subramanian MD conrado: H is updated medication list for this problem includes: Metoprolol Tartrate 100 Mg Tabs (Metoprolol tartrate) ..... 1 tablet by mouth twice daily BP today: 112/70 P rior BP: 101/57 (01/17/2008) Shaka Subramanian MD conrado: H is updated medication list for this problem includes: Metoprolol Tartrate 100 Mg Tabs (Metoprolol tartrate) ..... 1 tablet by mouth twice daily Niaspan 500 Mg Cr-tabs (Niacin (antihyperlipidemic)) ..... 1 tablet by mouth daily Crestor 10 Mg Tabs (Rosuvastatin calcium) ..... 1 tablet by mouth daily BP today: 112/70 Prior BP: 101/57 (01/17/2008) S tress Test: Good exercise tolerance. Negative stress EKG for stress induced ischemia. Increased frequency of ventricualr arrhythmias during and after stress. (12/26/2005) S tress Test Comments: Further assessment of cardiac status is strongly recommended. (12/26/2005) C ardiac Cath: Normal LV function. Elevated LVEDP. No obstructive CAD. Nonsustained ventricular tachycardia. EF 60%. (12/27/2005) Shkaa Subramanian MD rouitne: H is updated medication list for this problem includes: Metoprolol Tartrate 100 Mg Tabs (Metoprolol tartrate) ..... 1 tablet by mouth twice daily BP today: 112/70 Prior BP: 101/57 (01/17/2008) S tress Test: Good exercise tolerance. Negative stress EKG for stress induced ischemia. Increased frequency of ventricualr arrhythmias during and after stress. (12/26/2005) S tress Test Comments: Further assessment of cardiac status is strongly recommended. (12/26/2005) C ardiac Cath: Normal LV function. Elevated LVEDP. No obstructive CAD. Nonsustained ventricular tachycardia. EF 60%. (12/27/2005) E chocardiogram: The left ventricular chamber size is normal. Wall thickness is increased consistent with mild concentric left ventricular hypertrophy. Normal left ventricular function. LV EF is estimated at 60% The right ventricle is normal in size and function. There is a linear artifact in right ventricle suggestive of catheter, pacer lead, or ICD lead. Mild left atrial enlargement.The mitral valve leaflets appear (sclerotic) thickened. The aortic valve appears mildly thickened (sclerotic). The tricuspid valve is structurally normal. The right ventricular systolic pressure (RSVP) is estimated to be less than 30 mmHg and is within normal limits. Minimal mitral regurgitation. No evidence of aortic valve regurgitation. M inimal tricuspid regurgitation. No evidence of pulmonic valve regurgitation. (01/17/2008) Orders: E KG ([id number]) Shaka Subramanian MD routine : H is updated medication list for this problem includes: Toprol Xl 100 Mg Tb24 (Metoprolol succinate) ..... One tab daily Shaka Subramanian MD routine Shaka Subramanian MD routine :The Patient was reencou raged to stop smoking. Shaka Subramanian MD routine : H is updated medication list for this problem includes: Toprol Xl 100 Mg Tb24 (Metoprolol succinate) ..... One tab daily S CANDELARIA HE HAS BEEN ON THE TOPROL HE HAS BEEN LESS DIZZY. HAD AN ICD SHOCK ONE TIME. Shaka Subramanian MD Date Name Complete Echo Complete Echo Stress Test - Nuclea r Complete Echo Stress Test - Nuclea r Complete Echo Complete Echo HISTORY OF PROCEDURES Procedure Date Procedure Name Provider Procedure Notes S tatus EKG Shaka Subramanian MD completed EKG Shaka Subramanian MD completed EKG Shaka Subramanian MD completed
== END 2024-04-25 09:01 | disposition home or self-care (01) ==
PROVIDERS: PCP Family Medicine; Visit Provider Nurse Practitioner Family
DX: Z12.2 Encounter for screening for malignant neoplasm of respiratory organs (principal); Z87.891 Personal history of nicotine dependence
CPT/HCPCS: 71271

== ENCOUNTER 2024-10-31 20:05 | Emergency (ER) | payer OTHER, SELFPAY ==
[2024-10-31 20:08] VITALS: BP 163/85; PULSE 84; RESP 16; TEMP 36.9; O2SAT 96
--- OUTSIDE RECORDS SUMMARY | 2024-10-31 20:08 | XMS_ITS | Encounter Summary ---
Author Organization [facility] Address [address] [place] [address] Care Team Providers Care Reserve Officer Name Role Phone Cristina Servin MD Primary Care Provider Anam Ambrosio MD Primary Care Provider Encounter Details Date Type Department Care Team (Late st Contact Info) Description 07/13/2016 Orders Only [facility] ProviderGayle MD [address] [place] [id number] Social History Tobacco Use Types Packs/Day Years Used Date Smoking Tobacco: Heavy Smoker Comments:Smoking History Pac ks/day: 1 Packs Alcohol Use Standard Drinks/Week Comments Yes 0 (1 standard drink = 0.6 oz pur e alcohol) Sex and Gender Information Value Date Recorded Sex Assigned at Not on file Legal Sex Male 7:32 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
--- OUTSIDE RECORDS SUMMARY | 2024-10-31 20:08 | XMS_ITS | Referral Summary ---
Author Organization [facility] [address] [facility] [address] Address [address] [place] [address] Care Team Providers Care Hay Stacker Name Role Phone Anam Ambrosio MD Primary Care Provider Encounters Date Type Department Care Team Description 08/13/2024 8:00 AM CDT Ancillary Procedure [facility] [address] [facility] [address] [place] [address] Dilated cardiomyopathy (HCC); ICD (implantable cardioverter-defibrillat or) in place 08/12/2024 Telephone [facility] [address] [place] [phone] Devon Barker MD 08/01/2024 8:00 AM CDT Office Visit [facility] [address] [place] [address] [address] [place] [address] Devon Barker MD ICD (implantable cardioverter-defibrillat or) in place (Primary Dx); Hyperlipidemia associated with type 2 diabetes mellitus (HCC); Ventricular tachycardia (HCC); Coronary arteriosclerosis in [place] artery; Essential (primary) hypertension; H/O cardiomyopathy from Last 3 Months Allergies Active Allergy [...] 2 puffs daily 07/12/19 24 Active rosuvastatin (CRESTOR) 20 mg tabletIndications:Co ronary arteriosclerosis in [place] artery TAKE 1 TABLET BY MOUTH DAILY 90 tablet 10/01/19 25 Active Active Problems Problem Noted Date Diagnosed Date Abnormal number of aortic valve cusps 06/29/2022 H/O cardiomyopathy 05/08/2019 Precordial pain 05/04/2018 ROCK (dyspnea on exertion) 04/18/2018 Dilated cardiomyopathy 06/30/2017 Tobacco use 12/22/2016 ICD (implantable cardioverter-defibrillator) in place 09/22/2016 Overview (05/18/2023): Medtronic [place] Dual ICD Dx; DCM. DOI 05/16/2023-[facility]. Chronic A-Lead from 2005, RV lead 06/12/13. 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 Gender Identity Not on file Sexual Orientation Not on file Last Filed Vital Signs Vital Sign Reading Time Taken Comments Blood Pressure 118/62 08/01/2024 7:49 AM CDT Pulse 85 08/01/2024 7:49 AM CDT Temperature - - Respiratory Rate - - Oxygen Saturation 95% 08/01/2024 7:49 AM CDT Inhaled Oxygen Concentration - - Weight 118.8 kg (262 lb) 08/01/2024 7:49 AM CDT Height 172.7 cm (5' 8) 08/01/2024 7:49 AM CDT Body Mass Index 39.84 08/01/2024 7:49 AM CDT Plan of Treatment Not on file Medical Devices Implanted Type Area Signal Fitter Device Identifier Shelf Expiration Date Model / Serial / Lot Icd-06/12/2013 Implanted:2013 (Quantity not on file) ICD Chest Medtronic Inc EVERA XT [id number] / [id number] / Procedures Procedure Name Priority Date/Time Associated Diagnosis Comments DEVICE CHECK - IN OFFICE Routine 08/13/2024 7:42 AM CDT Dilated cardiomyopathy (HCC) ICD (implantable cardioverter-defibrill ator) in place POCT LIPID PANEL Routine 08/01/2024 7:44 AM CDT Hyperlipidemia associated with type 2 diabetes mellitus (HCC) from Last 3 Months Results * DEVICE CHECK - IN OFFICE (08/13/2024 7:42 AM CDT) Anatomical Region Laterality Modality Other Narrative 08/15/2024 2:57 PM CDT Medtronic Shohola Dual ICD Dx; DCM. DOI 05/16/2023-[facility]. Chronic A-Lead from 2005, RV lead 06/12/13. Carelink remote. Supervising MD: Mj Office interrogation of AAIR <> DDDR ICD demonstrated appropriate device function. Left pectoral incision well approximated without redness, drainage, or edema noted. Battery function: 11.0 years remaining battery life to CHALINO. Charge time: 3.7 seconds Appropriate lead measurements noted-see report for results. Presenting rhythm- AP/VS Underlying rhythm- NSR AP- 56.6 %, ADMITTING REPRESENTATIVE- < 0.1 % No Atrial high rate episodes recorded. 2 Ventricular tachy arrhythmias recorded. IEGMs demonstrate triplet PVCs over 1 seconds on 2 separate IEGMs Medications; ASA 81 MG, Toprol-XL 100 mg, olmesartan-hydrochlorothiazide 40-12.5 mg No programming changes made to device settings. See scanned report. Office device f/u scheduled 09/10/25. Medtronic remote f/u 11/20/24. Antwan Rapp, RN Devon Barker MD [facility] PRO CEDURES Final Result * POCT lipid panel (08/01/2024 7:44 AM CDT) Cholesterol, POC <100 mg/dL HDL, POC 21 mg/dL Triglycerides, POC 149 mg/dL LDL Cholesterol POC 48.2 mg/dL Chol/HDL Ratio, POC n/a Non-HDL Cholesterol, POC n/a mg/dL Cholesterol Total, POC <100 mg/dL Capillary blood 08/01/2024 7 :44 AM CDT Devon Barker MD POINT OF CARE TEST JESSICA BERMUDEZ Final Result from Last 3 Months Insurance [facility] CHO[facility] PLUS [facility] CHOICE PLUS Care Teams Hay Stacker Relationship Specialty Start Date End Date Anam Ambrosio MD [address] [facility] [address] [place] [address] PCP - General Family Medicine 07/09/24
--- OUTSIDE RECORDS SUMMARY | 2024-10-31 20:08 | XMS_ITS | Clinical Summary ---
Author Organization [facility] [address] Address [address] [place] [address] Care Team Providers Care Car Escort Name Role Phone Anam Ambrosio MD Primary Care Provider Allergies Active Allergy [...] (CRESTOR) 20 mg tabletIndications:Co ronary arteriosclerosis in [place] artery TAKE 1 TABLET BY MOUTH DAILY 90 tablet 10/01/19 25 Active Active Problems Problem Noted Date Diagnosed Date Abnormal number of aortic valve cusps 06/29/2022 H/O cardiomyopathy 05/08/2019 Precordial pain 05/04/2018 ROCK (dyspnea on exertion) 04/18/2018 Dilated cardiomyopathy 06/30/2017 Tobacco use 12/22/2016 ICD (implantable cardioverter-defibrillator) in place 09/22/2016 Overview (05/18/2023): Medtronic [place] Dual ICD Dx; DCM. DOI 05/16/2023-[facility]. Chronic A-Lead from 2005, RV lead [...] Overview (09/02/2016): Ventricular tachycardia Coronary arteriosclerosis in [place] artery 07/04 Overview (09/02/2016): CAD in [place] artery Assessment & Plan (12/22/2016 6:14 PM [...] Hyperlipidemia associated with type 2 diabetes m ellitus 07/04/2016 Overview (09/02/2016): Mixed hyperlipidemia Assessment & Plan (12/22/2016 6:15 PM CDT): 09/2016 cholesterol 122, triglycerides 156, LDL 64, at goal Resolved Problems Problem Noted Date Diagnosed Date Resolved Date Borderline diabetes mellitus 07/04/2016 06/29/2022 Overview (09/02/2016): Pre-diabetes Hypercholesterolemia 07/04/2016 017 Overview (09/02/2016): Hypercholesterolemia Encounters Date Type Department Care Team Description 08/13/2024 8:00 AM CDT Ancillary Procedure [facility] Cardiology [address] [place] [address] [place] [phone] Dilated cardiomyopathy (HCC); ICD (implantable cardioverter-defibrillat or) in place 08/12/2024 Telephone [facility]iology [address] [place] [address] [place] [phone] Devon Barker MD 08/01/2024 8:00 AM CDT Office Visit [facility] Cardiology [address] [place] [address] [address] [place] [phone] Devon Barker MD ICD (implantable cardioverter-defibrillat or) in place (Primary Dx); Hyperlipidemia associated with type 2 diabetes mellitus (HCC); Ventricular tachycardia (HCC); Coronary arteriosclerosis in [place] artery; Essential (primary) hypertension; H/O cardiomyopathy from Last 3 Months Surgical History Surgery [...] on file 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 Gender Identity Not on file Sexual [...] 08/01/2024 7:49 AM CDT Plan of Treatment Health Maintenance Due Date Last Done Comments Albumin Creatinine Ratio, Urine 1962 Colon Cancer Screening-Colonoscopy 1962 Depression Screening 1962 Hemoglobin A1C 1962 Hepatitis C Screening 1962 Prostate Cancer Screening-PSA 1962 eGFR 1962 Dilated Eye Exam 1962 Foot Exam 1962 DTaP/Tdap/Td Vaccine (1 - Tdap) 1973 Hepatitis B Screening 02/01/1980 Regular Well Visit/Exam 18-64 02/01/1980 Pneumococcal vaccine <65 (1 of 2 - PCV) 1981 Zoster Vaccine (1 of 2) 02/01/2012 Influenza Vaccine (#1) 2024 0, 02/04/2017, 01/17/2013 Lipid Panel 08/01/2025 08/01/2024, 04/0 11/2023, 06/29/2022, Additional history exists Medical Devices Implanted Type Area Nurse Sane Device Identifier Shelf Expiration Date Model / Serial / Lot Icd-06/12/2013 Implanted:2013 (Quantity not on file) ICD Chest Medtronic Dyan EVERA XT [id number] / [id number] / Procedures Procedure Name Priority Date/Time Associated [...] Other Narrative 08/15/2024 2:57 PM CDT Medtronic [place] Dual ICD Dx; DCM. DOI 05/16/2023-[facility]. Chronic A-Lead from 2005, RV lead [...] AP/VS Underlying rhythm- NSR AP- 56.6 %, MUTUEL DEPARTMENT MANAGER- < 0.1 % No Atrial high rate episodes recorded. 2 Ventricular tachy arrhythmias recorded. IEGMs demonstrate triplet PVCs over 1 seconds on 2 separate IEGMs Medications; ASA 81 MG, Toprol-XL 100 mg, olmesartan-hydrochlorothiazide 40-12.5 mg No programming changes made to device settings. See scanned report. Office device f/u scheduled 09/10/25. Medtronic remote f/u 11/20/24. Antwan Rapp, EUGENE us Ripa Alaina Barker MD [facility] PRO CEDURES Final Result * POCT lipid panel (08/01/2024 7:44 AM CDT) Cholesterol, POC <100 mg/dL HDL, POC 21 mg/dL Triglycerides, POC 149 mg/dL LDL Cholesterol POC 48.2 mg/dL Chol/HDL Ratio, POC n/a Non-HDL Cholesterol, POC n/a mg/dL Cholesterol Total, POC <100 mg/dL Capillary blood 08/01/2024 7 :44 AM CDT us Devon Barker MD POINT OF CARE TEST ORDE RABLES Final Result from Last 3 Months Insurance [facility] PLUS [facility] H[facility]/PPO Address: [facility] [address] [place] [address] [facility] CHO[facility] PLUS [facility] H[facility]/PPO Address: [facility] [address] [place] [address] Care Teams Car Escort Relationship Specialty Start Date End Date Anam Ambrosio MD [address] [facility] [address] [place] [address] PCP - General Family Medicine 07/09/24
--- OUTSIDE RECORDS SUMMARY | 2024-10-31 20:08 | XMS_ITS | Encounter Summary ---
Author Organization [facility] Address [address] [facility] [place] [address] Care Team Providers Care Plate Gauger Name Role Phone Cristina Servin MD Primary Care Provider + Encounter Details Date Type Department Care Team (Late st Contact Info) Description 08/10/2009 [facility] Fidelina Nguyen MD [address] [facility] [address] [place] [phone] Social History Tobacco Use Types Packs/Day Years Used Date Smoking Tobacco: Never Assessed Sex and Gender Information Value Date Recorded Sex Assigned at Not on file 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
--- OUTSIDE RECORDS SUMMARY | 2024-10-31 20:08 | XMS_ITS | Clinical Summary ---
Author Organization [facility] Address [address] [facility] [place] [address] Care Team Providers Care Moveman Name Role Phone Cristina Servin MD Primary Care Provider + Source Comments [facility],non-owned Affiliates and Associated Physician Practices is amultiple site organization consisting of ambulatory clinics and hospital sitesin [place], [place] and [place]. This disclosure is being madepursuant to the Care Everywhere program and may not contain all information available regarding this patient. Last updated 17.[employer]ocus Allergies No known active allergies Medications * Be aware that medications may not be up to date on this document. Alwaysverify current medications with the patient. rosuvastatin (CRESTOR) 10 MG tabletIndicatio ns:AICD (automatic cardioverter/de fibrillator) present,Elevate d cholesterol,HTN (hypertension) Take 10 mg by mouth daily. Active aspirin 81 MG tabletIndicatio ns:AICD (automatic cardioverter/de fibrillator) present,Elevate d cholesterol,HTN (hypertension) Take 81 mg by mouth daily. Active metoprolol succinate XL 24hr (TOPROL XL) 50 MG tabletIndicatio ns:AICD (automatic cardioverter/de fibrillator) present,Elevate d cholesterol,HTN (hypertension) Take 2 Tabs by mouth 2 times daily. 30 1 08/10/2009 Active metFORMIN (GLUCOPHAGE) 500 MG tablet Take 500 mg by mouth 2 times daily with morning and evening meal. Active losartan (COZAAR) 25 MG tablet Take 25 mg by mouth once daily. Active budesonide-form oterol (SYMBICORT) 160-4.5 MCG/ACT inhaler Inhale 2 Puffs by mouth 2 times daily. 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 Gender Identity Not on file Sexual Orientation Not on file Last Filed Vital Signs Vital Sign Reading Time Taken Comments Blood Pressure 115/69 06/12/2013 11:30 AM METALIZING MACHINE OPERATOR Pulse 98 06/12/2013 11:30 AM METALIZING MACHINE OPERATOR Temperature 36.4 C (97.6 F) 06/12/2013 10:50 AM METALIZING MACHINE OPERATOR Respiratory Rate 17 06/12/2013 11:30 AM METALIZING MACHINE OPERATOR Oxygen Saturation 92% 06/12/2013 11:30 AM METALIZING MACHINE OPERATOR Inhaled Oxygen Concentration - - Weight 100.2 kg (221 lb) 06/12/2013 8:39 AM METALIZING MACHINE OPERATOR Height 172.7 cm (5' 8) 06/12/2013 8:39 AM METALIZING MACHINE OPERATOR Body Mass Index 33.6 06/12/2013 8:39 AM METALIZING MACHINE OPERATOR Plan of Treatment Health Maintenance Due Date [...] 50+ (1 of 2 - PCV) 1981 ZOSTER VACCINE (1 of 2) 02/01/2012 COVID-19 VACCINE (1 - 2023-2 5 season) 2023 DEPRESSION SCREENING 04/10/2024 INFLUENZA VACCINE (#1) 2024 Respiratory Syncytial Virus (RSV) Vaccine Pt: or [...] to complete this topic MENINGOCOCCAL (Group B) VACC INE SHARED DECISION-MAKING Aged Out No longer eligibl e based on patient's age to complete this topic MENINGOCOCCAL GROUPS A/C/Y/W VACCINE Aged Out No longer eligible b ased on patient's age to complete this topic [place] [address] [place] [address] Advance Directives * Full Code (Latest Code Status on File) Date Activated Date Inactivated Comments 06/12/2013 10:40 AM 06/12/2013 12:58 PM Care Teams Moveman Relationship Specialty Start Date End Date Cristina Servin MD [address] [place] [address] PCP - General Family Medicine 06/11/13
--- OUTSIDE RECORDS SUMMARY | 2024-10-31 20:08 | XMS_ITS | Encounter Summary ---
Author Organization [facility] Address [address] [facility] [address] [place] [address] Care Team Providers Care Hoistman Name Role Phone Cristina Servin MD Primary Care Provider Cristina Servin MD Primary Care Provider Anam Ambrosio MD Primary Care Provider Encounter Details Date Type Department Care Team (Late st Contact Info) Description 06/20/2016 Orders Only Cardiology Diagnostics ProviderGayle MD [address] [place] [phone] Social History Tobacco Use Types Packs/Day Years Used Date Smoking Tobacco: Heavy Smoker Comments:Smoking History Pac ks/day: 1 Packs Alcohol Use Standard Drinks/Week Comments Yes 0 (1 standard drink = 0.6 oz pur e alcohol) Sex and Gender Information Value Date Recorded Sex Assigned at Not on file 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 us Historical Provider CV CARDIAC SERVICES PROCE DURES Final Result documented in this encounter Visit Diagnoses Not on filedocumented in this encounter Care Teams Hoistman Relationship Specialty Start Date End Date Cristina Servin MD [address] [place] [address] PCP - General 07/08/16 07/08/24 Cristina Servin MD [address] [place] [address] PCP - General 05/19/15 07/07/16 Anam Ambrosio MD [address] [place] [address] PCP - General Family Medicine 07/09/24 documented as of this encounter
--- NOTE | 2024-10-31 20:23 | ED.EAR ---
HPI - Ear Problem General Chief complaint: Ear Stated complaint: Hearing aid piece stuck in ear Time Seen by Provider: 10/31/24 20:17 History of Present Illness HPI Narrative: 64-year-old male presents emergency department for a left ear foreign body. Patient states he went to take out his left hearing aid but noticed the ear piece broke off and stated his ear. This occurred 30 minutes prior to arrival. Denies pain. Related Data Home Medications ?Medication ?Instructions ?Recorded ?Confirmed ?Last Taken ?Type aspirin 81 mg tablet,delayed 81 mg PO DAILY 02/06/20 09/30/24 05/15/23 History release Allergies Allergy/AdvReac Type Severity Reaction Status Date / Time bupropion (From Wellbutrin) AdvReac Rash Verified 10/31/24 20:11 Review of Systems Review of Systems: All systems reviewed & are unremarkable except as noted in HPI and below PMFSH Past Medical History Medical History Colon cancer screening Lesion of finger Ankle pain, left Prostate cancer screening Adhesive capsulitis of left shoulder Hypertension Heart disease Candidiasis of skin and nail PARKER (obstructive sleep apnea) Acromioclavicular (joint) (ligament) sprain Knee effusion, right Knee pain, right Myalgia Subacute sinusitis Food poisoning Tobacco abuse COPD (chronic obstructive pulmonary disease) Obesity (BMI 35.0-39.9 without comorbidity) ICD (implantable cardioverter-defibrillator) battery depletion Borderline diabetes PARKER and COPD overlap syndrome Non-sustained ventricular tachycardia CAD (coronary artery disease) Low HDL (under 40) Mixed hyperlipidemia Benign essential HTN Family History Family History Father Patient's father is Family history of renal cell carcinoma, Onset Age: 65 Sibling Malignant neoplasm of prostate, Onset Age: 50 Other Cancer Heart disease Social History Social History Social History: single Smoking packs per day: 2 Smoking cigarettes per day: 40.0 Years smoked: 56 Smoking pack-years: 112.00 Smoking status: Current every day smoker Tobacco type: cigarettes Second hand tobacco smoke exposure: Yes Alcohol intake: never Alcohol use details: rarely Substance use: current Substance use type: marijuana Last use: 2/3/24 Living arrangements: alone Occupation/Education: occupation Gender identity (if verbalized by the patient): Male Sexual Orientation (if Verbalized by the Patient): Straight or Heterosexual Spiritual care concerns: No Exam Narrative: GENERAL: Well-appearing, well-nourished, and in no acute distress. HEAD: Normocephalic, atraumatic. EYES: EOMI. ENT: Nares clear, no rhinorrhea or epistaxis. Mucous membranes moist. Left ear with black hearing 80 year tip in the ear canal. After removal, some cerumen noted in the canal otherwise unremarkable. TM is intact with no perforation or erythema, no bulging NECK: Supple. CHEST: Clear to auscultation. No respiratory distress. HEART: Regular rate and rhythm. No murmur heard. Normal peripheral pulses. EXTREMITIES: Normal range of motion. No edema. SKIN: Warm, dry, no rash. NEURO:Alert and oriented x3 Course Vital Signs Vital signs: Vital Signs Temperature 98.5 F 10/31/24 20:08 Pulse Rate 84 10/31/24 20:08 Respiratory Rate 16 10/31/24 20:08 Blood Pressure 163/85 H 10/31/24 20:08 Pulse Oximetry 96 10/31/24 20:08 Oxygen Delivery Room Air 10/31/24 20:08 Temperature 98.5 F 10/31/24 20:08 Pulse Rate 84 10/31/24 20:08 Respiratory Rate 16 10/31/24 20:08 Blood Pressure 163/85 H 10/31/24 20:08 Pulse Oximetry 96 10/31/24 20:08 Oxygen Delivery Room Air 10/31/24 20:08 Procedures Foreign Body Removal Foreign Body #1: Foreign Body Removal Date: 10/31/24 Time Out Performed: yes Site: left Description of foreign body: other (Hearing aid piece) Sedation/Analgesia: none Technique: removal with forceps (Alligator forceps) and other Confirmed by:: direct visualization Complications: none Post-procedure exam: awake, alert Neurovascular: no change from pre-procedure Medical Decision Making MDM Narrative Medical decision making narrative: 64-year-old male presents emergency department for left ear foreign body after the rubber tip of his hearing aid stuck in his your 3 minutes prior to arrival. Vitals with hypertension otherwise unremarkable. Exam is notable for a black rubber tip of his hearing a lodged in the left ear canal. Rubber tip easily removed with alligator forceps and is fully intact. On repeat exam canal is unremarkable other than mild cerumen. TM is yoon and nonbulging with no perforation. Patient discharged and given strict ED return precautions. Vital Signs Vital Signs: Vital Signs Temperature 98.5 F 10/31/24 20:08 Pulse Rate 84 10/31/24 20:08 Respiratory Rate 16 10/31/24 20:08 Blood Pressure 163/85 H 10/31/24 20:08 Pulse Oximetry 96 10/31/24 20:08 Oxygen Delivery Room Air 10/31/24 20:08 Temperature 98.5 F 10/31/24 20:08 Pulse Rate 84 10/31/24 20:08 Respiratory Rate 16 10/31/24 20:08 Blood Pressure 163/85 H 10/31/24 20:08 Pulse Oximetry 96 10/31/24 20:08 Oxygen Delivery Room Air 10/31/24 20:08 Discharge Plan Discharge Clinical Impression: Ear foreign body Patient Disposition: Home Condition: Stable Instructions: Antibiotic Form, Ear Foreign Body (ED) Additional Instructions: Return to the emergency department if you develop ear pain, drainage from your ear, fever or other concerning symptoms. Patient Language: Slovenian Prescriptions: No Action aspirin 81 mg tablet,delayed release (DR/EC) 81 mg PO DAILY escitalopram oxalate 5 mg tablet 5 mg PO DAILY Qty: 30 2RF Spiriva Respimat 1.25 mcg/actuation mist See Rx Instructions .ROUTE .COMPLEX Qty: 4 11RF Dose Instruction: INHALE 2 PUFFS BY MOUTH EVERY 24 HOURS Rx Instructions: INHALE 2 PUFFS BY MOUTH EVERY 24 HOURS rosuvastatin 10 mg tablet See Rx Instructions .ROUTE .COMPLEX Qty: 90 3RF Dose Instruction: TAKE 1 TABLET BY MOUTH DAILY Rx Instructions: TAKE 1 TABLET BY MOUTH DAILY albuterol sulfate 90 mcg/actuation HFA aerosol inhaler See Rx Instructions .ROUTE .COMPLEX Qty: 8.5 0RF Dose Instruction: INHALE 1 PUFF BY MOUTH EVERY 4 HOURS NEEDED FOR SHORTNESS OF BREATH OR WHEEZING Rx Instructions: INHALE 1 PUFF BY MOUTH EVERY 4 HOURS NEEDED FOR SHORTNESS OF BREATH OR WHEEZING olmesartan-hydrochlorothiazide 40-12.5 mg tablet 1 tablet PO DAILY Qty: 90 3RF Rx Instructions: TAKE 1 TABLET BY MOUTH DAILY metformin 500 mg tablet 500 mg PO BID Qty: 180 3RF metoprolol succinate 100 mg tablet extended release 24 hr See Rx Instructions .ROUTE .COMPLEX Qty: 180 0RF Dose Instruction: TAKE 1 TABLET BY MOUTH TWICE DAILY Rx Instructions: TAKE 1 TABLET BY MOUTH TWICE DAILY Follow-up/Referrals: Anam Ambrosio MD [Primary Care Provider] -
--- OUTSIDE RECORDS SUMMARY | 2024-10-31 20:38 | XMS_ITS | Encounter Summary ---
Author Organization [facility] Medical Group Address [address] [facility] [address] [place] [address] Care Team Providers Care Remedial Teacher Name Role Phone Cristina Servin MD Primary Care Provider Cristina Servin MD Primary Care Provider Anam Ambrosio MD Primary Care Provider Encounter Details Date Type Department Care Team (Late st Contact Info) Description 06/20/2016 Orders Only Cardiology Diagnostics ProviderGayle MD [address] [place] [address] Social History Tobacco Use Types Packs/Day Years Used Date Smoking Tobacco: Heavy Smoker Comments:Smoking History Pac ks/day: 1 Packs Alcohol Use Standard Drinks/Week Comments Yes 0 (1 standard drink = 0.6 oz pur e alcohol) Sex and Gender Information Value Date Recorded Sex Assigned at Not on file 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
--- OUTSIDE RECORDS SUMMARY | 2024-10-31 20:38 | XMS_ITS | Clinical Summary ---
Author Organization [facility] Address [address] [facility] [place] [address] Care Team Providers Care Corporate Operations Compliance Manager Name Role Phone Cristina Servin MD Primary Care Provider + Source Comments [facility],non-owned Affiliates and Associated Physician Practices is amultiple site organization consisting of ambulatory clinics and hospital sitesin [place], [place], [place] and [place]. This disclosure is being madepursuant to the Care Everywhere program and may not contain all information available regarding this patient. 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 Gender Identity Not on file Sexual Orientation Not on file Last Filed Vital Signs Vital Sign Reading Time Taken Comments Blood Pressure 115/69 06/12/2013 11:30 AM TELECOMMUNICATION EQUIPMENT REPAIRER Pulse 98 06/12/2013 11:30 AM TELECOMMUNICATION EQUIPMENT REPAIRER Temperature 36.4 C (97.6 F) 06/12/2013 10:50 AM TELECOMMUNICATION EQUIPMENT REPAIRER Respiratory Rate 17 06/12/2013 11:30 AM TELECOMMUNICATION EQUIPMENT REPAIRER Oxygen Saturation 92% 06/12/2013 11:30 AM TELECOMMUNICATION EQUIPMENT REPAIRER Inhaled Oxygen Concentration - - Weight 100.2 kg (221 lb) 06/12/2013 8:39 AM TELECOMMUNICATION EQUIPMENT REPAIRER Height 172.7 cm (5' 8) 06/12/2013 8:39 AM TELECOMMUNICATION EQUIPMENT REPAIRER Body Mass Index 33.6 06/12/2013 8:39 AM TELECOMMUNICATION EQUIPMENT REPAIRER Plan of Treatment Health Maintenance Due Date [...] patient's age to complete this topic [place] [place] [address] Advance Directives * Full Code (Latest Code Status on File) Date Activated Date Inactivated Comments 06/12/2013 10:40 AM 06/12/2013 12:58 PM Care Teams Corporate Operations Compliance Manager Relationship Specialty Start Date End Date Cristina Servin MD [address] [place] [address] PCP - General Family Medicine 06/11/13
--- OUTSIDE RECORDS SUMMARY | 2024-10-31 20:38 | XMS_ITS | Referral Summary ---
Author Organization [facility] [address] [facility] [address] Address [address] [place] [address] Care Team Providers Care Lab Aid Name Role Phone Anam Ambrosio MD Primary Care Provider Encounters Date Type Department Care Team Description 08/13/2024 8:00 AM CDT Ancillary Procedure [facility] Cardiology [address] [facility] [address] [place] [address] Dilated cardiomyopathy (HCC); ICD (implantable cardioverter-defibrillat or) in place 08/12/2024 Telephone [facility] Cardiology [facility] [address] [place] [phone] Devon Barker MD 08/01/2024 8:00 AM CDT Office [facility] Cardiology [address] [place] [address] [address] [place] [address] Devon Barker MD ICD (implantable cardioverter-defibrillat or) in place (Primary Dx); Hyperlipidemia associated with type 2 diabetes mellitus (HCC); Ventricular tachycardia (HCC); Coronary arteriosclerosis in [place] artery; Essential (primary) hypertension; H/O cardiomyopathy from [...] (CRESTOR) 20 mg tabletIndications:Co ronary arteriosclerosis in [place] artery TAKE 1 TABLET BY MOUTH DAILY 90 tablet 10/01/19 25 Active Active Problems Problem Noted Date Diagnosed Date Abnormal number of aortic valve cusps 06/29/2022 H/O cardiomyopathy 05/08/2019 Precordial pain 05/04/2018 ROCK (dyspnea on exertion) 04/18/2018 Dilated cardiomyopathy 06/30/2017 Tobacco use 12/22/2016 ICD (implantable cardioverter-defibrillator) in place 09/22/2016 Overview (05/18/2023): Medtronic Bruno Dual ICD Dx; DCM. DOI 05/16/2023-[facility]. Chronic A-Lead from 2005, RV lead 06/12/13. 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 DOI 05/16/2023-[facility]. Chronic A-Lead from 2005, RV lead 06/12/13. Carelink remote. Supervising MD: Mj Office interrogation of AAIR <> DDDR ICD demonstrated appropriate device function. Left pectoral incision well approximated without redness, drainage, or edema noted. Battery function: 11.0 years remaining battery life to CHALINO. Charge time: 3.7 seconds Appropriate lead measurements noted-see report for results. Presenting rhythm- AP/VS Underlying rhythm- NSR AP- 56.6 %, FOOD CONCESSION MANAGER- < 0.1 % No Atrial high [...] Final Result from Last [address] [facility] PL[facility] Care Teams Lab Aid Relationship Specialty Start Date End Date Anam Ambrosio MD [address] [facility] [address] [place] [address] PCP - General Family Medicine 07/09/24
--- OUTSIDE RECORDS SUMMARY | 2024-10-31 20:38 | XMS_ITS | Clinical Summary ---
Author Organization [facility] [address] Address [address] [place] [address] Care Team Providers Care Cd Reactor Operator Head Name Role Phone Anam Ambrosio MD Primary [...] (CRESTOR) 20 mg tabletIndications:Co ronary arteriosclerosis in [place] artery TAKE 1 TABLET BY MOUTH DAILY 90 tablet 10/01/19 25 Active Active Problems Problem Noted Date Diagnosed Date Abnormal number of aortic valve cusps 06/29/2022 H/O cardiomyopathy 05/08/2019 Precordial pain 05/04/2018 ROCK (dyspnea on exertion) 04/18/2018 Dilated cardiomyopathy 06/30/2017 Tobacco use 12/22/2016 ICD (implantable cardioverter-defibrillator) in place 09/22/2016 Overview (05/18/2023): Medtronic [place] Dual ICD Dx; DCM. DOI 05/16/2023-[facility]. Chronic A-Lead from 2005, RV [...] Overview (09/02/2016): Ventricular tachycardia Coronary arteriosclerosis in [place] artery 07/04 Overview (09/02/2016): CAD in [place] artery Assessment & Plan (12/22/2016 6:14 PM [...] Description 08/13/2024 8:00 AM CDT Ancillary Procedure [facility] Cardiology [address] [place] [address] [place] [phone] Dilated cardiomyopathy (HCC); ICD (implantable cardioverter-defibrillat or) in place 08/12/2024 Telephone [facility] Cardiology [address] [place] [address] [place] [phone] Devon Barker MD 08/01/2024 8:00 AM CDT Office Visit [facility] Cardiology [address] [place] [address] [address] [place] [phone] Devon Barker MD ICD (implantable cardioverter-defibrillat or) in place (Primary Dx); Hyperlipidemia associated with type 2 diabetes mellitus (HCC); Ventricular tachycardia (HCC); Coronary arteriosclerosis in [place] artery; Essential (primary) hypertension; H/O cardiomyopathy from [...] on file 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 DOI 05/16/2023-[facility]. Chronic A-Lead from 2005, RV [...] AP/VS Underlying rhythm- NSR AP- 56.6 %, MECHANICAL METER TESTER- < 0.1 % No Atrial high rate [...] Final Result from Last 3 Months Insurance [facility] CHO[facility] PLUS [facility] CHO[facility] PLUS Care Teams Cd Reactor Operator Head Relationship Specialty Start Date End Date Anam Ambrosio MD [address] [facility] [address] [place] [address] PCP - General Family Medicine 07/09/24
--- OUTSIDE RECORDS SUMMARY | 2024-10-31 20:38 | XMS_ITS | Encounter Summary ---
Author Organization [facility] Medical Group Address [address] [facility] [address] [place] [address] Care Team Providers Care Commercial Underwriter Name Role Phone Cristina Servin MD Primary Care Provider Anam Ambrosio MD Primary Care Provider Encounter Details Date Type Department Care Team (Late st Contact Info) Description 07/13/2016 Orders Only [facility] ProviderGayle MD [address] [place] [address] Social History Tobacco Use Types Packs/Day Years Used Date Smoking Tobacco: Heavy Smoker Comments:Smoking History Pac ks/day: 1 Packs Alcohol Use Standard Drinks/Week Comments Yes 0 (1 standard drink = 0.6 oz pur e alcohol) Sex and Gender Information Value Date Recorded Sex Assigned at Not on file 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
--- OUTSIDE RECORDS SUMMARY | 2024-10-31 20:38 | XMS_ITS | Encounter Summary ---
Author Organization [facility] Address [address] [facility] [place] [address] Care Team Providers Care Non Profit Director Name Role Phone Cristina Servin MD Primary Care Provider + Encounter Details Date Type Department Care Team (Late st Contact Info) Description 08/10/2009 [facility] Visit [facility]TERNAL [facility] DEPT Fidelina Nguyen MD [address] [facility] [address] [place] [phone] Social History Tobacco Use Types Packs/Day Years Used Date Smoking Tobacco: Never Assessed Sex and Gender Information Value Date Recorded Sex Assigned at Not on file 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
== END 2024-10-31 20:37 | disposition home or self-care (01) ==
LOC: ANHED 20:36
PROVIDERS: Emergency Provider Physician Assistant; PCP Family Medicine
DX: T16.2XXA Foreign body in left ear, initial encounter (principal); I10 Essential (primary) hypertension; G47.33 Obstructive sleep apnea (adult) (pediatric); J44.9 Chronic obstructive pulmonary disease, unspecified; E78.2 Mixed hyperlipidemia; F17.210 Nicotine dependence, cigarettes, uncomplicated
CPT/HCPCS: 69200; 99282